=== PATIENT | female | born 1945 | race African-American/Black ===

== ENCOUNTER 2024-10-02 09:54 | Outpatient (AMB) | payer MEDICARE, SELFPAY ==
--- NOTE | 2024-10-02 10:07 | MHC.OFFVIS ---
Vital Signs 10/02/24 10:08 Height 5 ft 4 in Weight 170 lb BMI 29.2 BP 122/64 Blood Pressure Location Lt brachial Position Sitting Pulse 82 Pulse Source Pulse Oximeter Pulse Oximetry (%) 96 Oxygen Delivery Method Room Air Intake Visit Reasons: OA Intake Note: Patient presents today for diffuse joint pain. She was last seen at [facility] by Dr. Mcdonald on 04/04/24. Quilt Maker Required: Yes Quilt Maker Services: Quilt Maker Offered & Declined Quilt Maker Name: WILL glez Accompanied by: DRAWING TRACER Allergies No Known Allergies Allergy (Verified 10/02/24 10:12) HPI HPI OA: Details: R shoulder is worse than left shoulder pain. She has difficulty dressing herself. Pain in shoulders when moving her arms up. She has pain in neck radiating to shoulders Knee pain is controlled. She received left knee cortisone injection with benefit. Review of Systems Const All systems reviewed & are unremarkable except as noted in HPI and below Physical Exam Vital Signs: Last Vital Signs Pulse 82 10/02/24 10:08 BP 122/64 10/02/24 10:08 Pulse Ox 96 10/02/24 10:08 Oxygen Delivery Method Room Air 10/02/24 10:08 BMI result Body Mass Index 29.2 Const Other: General: Comfortable Skin: No lesions seen MSK: Tender bilateral shoulders. Shoulder abduction 160 degrees. Good internal rotation. External rotation is not full due to pain. Tender to palpation cervical spinous process, paraspinal muscles and trapezius. Good cervical ROM. Office Procedures AMB Joint Injection/Aspiration Joint Injection/Aspiration Details: Right shoulder joint Prep: site was prepped using aseptic technique Injected: 40 mg of, Kenalog, with 1 mL of and 1% plain lidocaine Procedure: The patient tolerated the procedure well. Postprocedure protocol was discussed with patient. Coding - Bilateral Large Joint Procedure code (CPT) selection complete AMB Joint Injection/Aspiration Joint Injection/Aspiration Details: Left shoulder joint Prep: site was prepped using aseptic technique Injected: 40 mg of, Kenalog, with 1 mL of and 1% plain lidocaine Procedure: The patient tolerated the procedure well. Postprocedure protocol was discussed with patient. Coding - Bilateral Large Joint Procedure code (CPT) selection complete Office Meds lidocaine (PF) 10 mg/mL (1 %) injection solution Performing Provider: Norman Mcdonald MD Performing Location: [facility] [place] [facility] Administered by: Norman Mcdonald MD on 10/02/24 21:56 Dose Route Admin Location Dispensed Lot Number Expiration Date [facility] Manager Development 10 mg Infiltration 5 mL [id number] HUONS/VGYAAN Kenalog 40 mg/mL suspension for injection Performing Provider: Norman Mcdonald MD Performing Location: [facility] [place] [facility] Administered by: Norman Mcdonald MD on 10/02/24 21:56 Dose Route Admin Location Dispensed Lot Number Expiration Date [facility] Manager Development 40 mg intra-articular 1 mL [id number] [employer] lidocaine (PF) 10 mg/mL (1 %) injection solution Performing Provider: Norman Mcdonald MD Performing Location: [facility] [place] [facility] Administered by: Norman Mcdonald MD on 10/02/24 21:56 Dose Route Admin Location Dispensed Lot Number Expiration Date [facility] Manager Development 10 mg Infiltration 5 mL [id number] [employer]ONS/VGYAAN Kenalog 40 mg/mL suspension for injection Performing Provider: Norman Mcdonald MD Performing Location: [facility] [place] [facility] Administered by: Norman Mcdonald MD on 10/02/24 21:56 Dose Route Admin Location Dispensed Lot Number Expiration Date [facility] Manager Development 40 mg intra-articular 1 mL [id number] [employer] Assessment & Plan Assessment & Plan (1) Osteoarthritis of glenohumeral joints, bilateral: Comment: Pain is uncontrolled. Code(s): M19.011 - Primary osteoarthritis, right shoulder; M19.012 - Primary osteoarthritis, left shoulder Category: Medical Plan: Patient received intra-articular cortisone injections to bilateral shoulders this visit PT ordered for strengthening Return to clinic in 3 months (2) Trapezius strain: Comment: Pain is uncontrolled. We discussed conservative management. Code(s): S46.819A - Strain of other muscles, fascia and tendons at shoulder and upper arm level, unspecified arm, initial encounter Category: Medical Qualifiers: Encounter type: initial encounter Laterality: unspecified laterality Qualified Code(s): S46.819A - Strain of other muscles, fascia and tendons at shoulder and upper arm level, unspecified arm, initial encounter Plan: Patient agreed to physical therapy Return to clinic in 3 months Orders: Orders PT Evaluation and Treatment Today M19.011 - Primary osteoarthritis, right shoulder, M19.012 - Primary osteoarthritis, left shoulder, S46.819A - Strain of other muscles, fascia and tendons at shoulder and upper arm level, unspecified arm, initial encounter AMB Joint Injection/Aspiration Today M19.011 - Primary osteoarthritis, right shoulder, M19.012 - Primary osteoarthritis, left shoulder AMB Joint Injection/Aspiration Today M19.011 - Primary osteoarthritis, right shoulder, M19.012 - Primary osteoarthritis, left shoulder Medications: New lidocaine (PF) 10 mg Infiltration ONCE 1 mL 0RF M19.011 - Primary osteoarthritis, right shoulder, M19.012 - Primary osteoarthritis, left shoulder Kenalog (triamcinolone acetonide) 40 mg intra-articular ONCE 1 mL 0RF NS M19.011 - Primary osteoarthritis, right shoulder, M19.012 - Primary osteoarthritis, left shoulder lidocaine (PF) 10 mg Infiltration ONCE 1 mL 0RF M19.011 - Primary osteoarthritis, right shoulder, M19.012 - Primary osteoarthritis, left shoulder Kenalog (triamcinolone acetonide) 40 mg intra-articular ONCE 1 mL 0RF NS M19.011 - Primary osteoarthritis, right shoulder, M19.012 - Primary osteoarthritis, left shoulder Coding Level of Care Code Est Pt Level 4 (93103) Complex EM visit Add On G2211 Diagnoses Osteoarthritis of glenohumeral joints, bilateral M19.011; M19.012 Strain of trapezius muscle, unspecified laterality, initial encounter S46.996V Encounter type: initial encounter Laterality: unspecified laterality CPT Codes Coding - 40572 - Bilateral Large Joint: 74262 - Bilateral Large Joint ([id number]) Coding - 24309 - Bilateral Large Joint: 79640 - Bilateral Large Joint ([id number])
[2024-10-02 10:08] VITALS: BP 122/64; PULSE 82; O2SAT 96; BMI 29.2
== END 2024-10-02 10:56 | disposition home or self-care (01) ==
PROVIDERS: PCP Internal Medicine Rheumatology; Visit Provider Internal Medicine Rheumatology
DX: M19.011 Primary osteoarthritis, right shoulder (principal); M19.012 Primary osteoarthritis, left shoulder; S46.819A Strain of other muscles, fascia and tendons at shoulder and upper arm level, unspecified arm, initial encounter
CPT/HCPCS: 20610; 99214

== ENCOUNTER → 2024-10-02 09:54 | Outpatient (BNVA) | payer MEDICARE, SELFPAY | PROVIDERS: PCP Internal Medicine Rheumatology; Visit Provider Internal Medicine Rheumatology | DX: M19.011 Primary osteoarthritis, right shoulder (principal); M19.012 Primary osteoarthritis, left shoulder | CPT/HCPCS: 20610; 99212; J2003; J3300 ==

== ENCOUNTER 2025-01-01 10:42 | Outpatient (AMB) | payer MEDICARE, SELFPAY ==
[2025-01-01 10:50] VITALS: BP 144/80; PULSE 75; O2SAT 96; BMI 29.9
--- NOTE | 2025-01-01 10:50 | MHC.OFFVIS ---
Vital Signs 01/01/25 10:50 Height 5 ft 4 in Weight 173 lb 15.115 oz BMI 29.9 BP 144/80 H Blood Pressure Location Rt brachial Position Sitting Pulse 75 Pulse Source Pulse Oximeter Pulse Oximetry (%) 96 Oxygen Delivery Method Room Air Intake Visit Reasons: Follow Up 3mo Intake Note: Patient presents today for diffuse joint pain. Sewage Disposal Worker Name: newton Information Interpreted: non-clinical & clinical Commercial Title Examiner: Commercial Title Examiner Present Accompanied by: electric motor repairman Allergies No Known Allergies Allergy (Verified 01/01/25 10:50) HPI HPI Follow Up 3mo: Details: She is experiencing right buttocks pain. She has been experiencing it for years. Bilateral shoulder pain resolved with cortisone injection. Review of Systems Const All systems reviewed & are unremarkable except as noted in HPI and below Physical Exam Vital Signs: Last Vital Signs Pulse 75 01/01/25 10:50 BP 144/80 H 01/01/25 10:50 Pulse Ox 96 01/01/25 10:50 Oxygen Delivery Method Room Air 01/01/25 10:50 BMI result Body Mass Index 29.9 Const Other: General: Comfortable Skin: No lesions seen MSK: Nontender bilateral shoulders. Normal range of motion of bilateral shoulders. Right SI joint tenderness. Positive ELLYN. Good lumbar flexion. No spinous process tenderness of lumbar spine. Normal hip external rotation. Normal knee flexion and extension. Assessment & Plan Assessment & Plan (1) Osteoarthritis of glenohumeral joints, bilateral: Comment: Bilateral chronic pain resolved with cortisone injection from last visit. We discussed the importance of having a home strengthening program to prevent recurrence of pain. Code(s): M19.011 - Primary osteoarthritis, right shoulder; M19.012 - Primary osteoarthritis, left shoulder Category: Medical Plan: PT ordered for strengthening. Patient prefers to have PT local to her home. Requisition given to patient Return to clinic in 3 months (2) Pain in right buttock: Comment: Chronic. She has localized tenderness to her right SI joint. I am concerned about development of new SI joint pathology. X-ray reviewed from 2021 [facility] records revealed normal SI joints. Code(s): M79.18 - Myalgia, other site Category: Medical Plan: X-ray SI joints ordered PT ordered for manual, myofascial release, TENs unit and exercise strengthening program. Patient prefers to have PT local to her home. Requisition given to patient. She will apply lidocaine patch to affected area daily Apply heat to area daily Return to clinic for 3 months Orders: Orders XR sacroiliac joint min 3V Today M79.18 - Myalgia, other site Coding Level of Care Code Est Pt Level 3 (52701) Complex EM visit Add On G2211 Diagnoses Osteoarthritis of glenohumeral joints, bilateral M19.011; M19.012 Pain in right buttock M79.18
--- OUTSIDE RECORDS SUMMARY | 2025-01-01 12:24 | XMS_ITS ---
Author Organization [facility] Address [address] [place] [address] Care Team Providers Care Pleat Taper Name Role Phone Alexandrea Ivan PA-C Primary Care Provider Active Problems Problem Noted Date Diagnosed Date Osteopenia 07/28/2022 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, estrogen receptor positive 08/16/2017 Current Oncology Plans No current plan information found. Past Plans Radiation Treatments * No radiation treatments are documented for this patient in [facility]. Treatments may have been administered in another system.
--- OUTSIDE RECORDS SUMMARY | 2025-01-01 12:24 | XMS_ITS | Clinical Summary ---
Author Organization [facility] Address [address] [place] [address] Care Team Providers Care Rest Room Maid Name Role Phone Alexandrea Ivan PA-C Primary Care Provider Allergies No known active allergies Medications Medication Sig Dispensed Refills Start Date End Date Status lisinopril (PRINIVIL,ZESTRIL) tablet 2.5 mg Take 1 tablet (2.5 mg total) by mouth daily. 0 Active cholecalciferol (VITAMIN D3) 1000 UNITS tablet Take 1 tablet (1,000 Units total) by mouth daily. 0 Active FLUoxetine (PROZAC) 20 MG capsule Take 1 capsule (20 mg total) by mouth daily. 0 Active vitamin B-12 (CYANOCOBALAMIN) 500 MCG tablet Take 1 tablet (500 mcg total) by mouth daily. 0 Active levothyroxine (SYNTHROID, LEVOXYL) tablet 100 mcg Take 1 tablet (100 mcg total) by mouth every morning on an empty stomach. 0 Active Insulin Detemir (LEVEMIR FLEXPEN SC) Inject under the skin. 0 Active Multiple Vitamins-Minerals (CENTRUM MULTIGUMMIES PO) Take by mouth. 0 Acti ve aspirin EC 81 MG tablet Take 1 tablet (81 mg total) by mouth daily. 0 Active omeprazole (PriLOSEC) 20 MG capsule TAKE 1 CAPSULE BY MOUTH EVERY MORNING BEFORE BREAKFAST. DO NOT CRUSH OR CHEW 90 capsule 3 05/04/2019 Active Calcium Carbonate-Vitamin D 600-400 MG-UNIT per tablet TAKE 1 TABLET BY MOUTH TWICE DAILY WITH FOOD 180 tablet 0 05/09/2019 Active anastrozole (ARIMIDEX) 1 MG tablet TAKE 1 TABLET(1 MG) BY MOUTH DAILY 90 tablet 3 12/15/2021 Active Additional Information Patient not taking.Reason: Other (MD discontinued after 12 years), Reported on 04/11/2023 QUEtiapine (SEROquel) 200 MG tablet Take 1 tablet (200 mg total) by mouth every night at bedtime. 0 02/02/2023 Active Semaglutide,0.25 or 0.5MG/DOS, (Ozempic, 0.25 or 0.5 MG/DOSE,) 2 MG/1.5ML SOPN INJECT 0.5MG INTO THE SKIN EVERY WEEK 0 12/10/2022 Active zolpidem (AMBIEN) 10 MG tablet Take 1 tablet (10 mg total) by mouth every night at bedtime. 0 01/15/2010 Active Spiriva Respimat 1.25 MCG/ACT AERS Take 2 puffs by mouth daily. 0 03/22/2023 Active rosuvastatin (CRESTOR) tablet 5 mg Take 1 tablet (5 mg total) by mouth every night at bedtime. 0 03/29/2023 Active gabapentin (NEURONTIN) 300 MG capsule Take 1 capsule (300 mg total) by mouth every night at bedtime. 0 03/29/2023 Active folic acid (FOLVITE) tablet 1 mg Take 1 tablet (1,000 mcg total) by mouth daily. 0 03/29/2023 Active docusate sodium (COLACE) 100 MG capsule Take 1 capsule (100 mg total) by mouth 2 (two) times a day. 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, estrogen receptor positive 08/16/2017 Family History Medical History Relation Name Comments Cancer Father liver Stroke Mother Relation Name Status Comments Father Mother Social History Tobacco Use Types Packs/Day Years Used Date Smoking Tobacco: Former Smokeless Tobacco: Never Alcohol Use Standard Drinks/Week Comments No 0 (1 standard drink = 0.6 oz pur e alcohol) Sex and Gender Information Value Date Recorded Sex Assigned at Female 10/04/2022 9:12 AM EST Gender Identity Not on file Sexual Orientation Not on file Job Start Date Occupation Industry Not on file Not on file Not on file Last Filed Vital Signs Vital Sign Reading Time Taken Comments Blood Pressure 143/64 04/11/2024 2:03 PM EDT Pulse 87 04/11/2024 2:03 PM EDT Temperature 36.9 ??C (98.4 ??F) 04/11/2024 2:03 PM ED T Respiratory Rate 18 04/11/2024 2:03 PM EDT Oxygen Saturation 99% 04/11/2024 2:03 PM EDT Inhaled Oxygen Concentration - - Weight 75.3 kg (166 lb) 09/26/2023 1:06 PM EST Height 157.5 cm (5' 2 ) 09/26/2023 1:06 PM EST Body Mass Index 30.36 09/26/2023 1:06 PM EST Plan of Treatment Health Maintenance Due Date Last Done Comments Depression Screening 1958 BMI Counseling 1964 Preventative Health Evaluation 1964 Shingrix-Zoster Vaccine (1 of 2) 1965 Fall Risk Assessment 11/11/2011 Osteoporosis Screening (DEXA Scan) 11/11/2011 RSV Adult > 60+ Yrs or (1 - 1-dose 75+ series) 2021 COVID-19 Vaccine ( season) 2024 02/10/2022, 08/25/2021, 01/06/2021 Influenza Vaccine (#1) 2024 2, 04/25/2021, 05/29/2020, Additional history exists DTap / Tdap / Td (2 - Td or Tdap) 12/22/2024 12/22/2014 Hepatitis C Screening Completed 07/11/2018 Pneumococcal Vaccine Completed 08/20/2022, 08/31/20 18 Hepatitis B Vaccines Aged Out No long er eligible based on patient's age to complete this topic RSV Ped < 20 months Aged Out No longe r eligible based on patient's age to complete this topic Care Teams Rest Room Maid Relationship Specialty Start Date End Date Alexandrea Ivan PA-C [address] [place] [address] PCP - General Physician Janitorial Cleaner 08/16/17
--- OUTSIDE RECORDS SUMMARY | 2025-01-01 12:24 | XMS_ITS | Clinical Summary ---
Author Organization [facility] Address [address] [place] [address] Care Team Providers Care Purchase Price Analyst Name Role Phone Alexandrea Ivan PA-C Primary Care Provider + [phone] Source Comments PLEASE NOTE, if this patient is a minor, it may be UNLAWFUL to discuss sensitive information that is contained in these records (such as FAMILY PLANNING, MENTAL HEALTH or SUBSTANCE ABUSE) with the minor patient's parent or other person without the patient's specific authorization.[facility] Allergies No known active allergies Medications FREESTYLE LANCETS 28 gauge USE FOUR TIMES DAILY 100 Each 11 021 Active naproxen (NAPROSYN) 500 mg tabletIndications :Spondylosis of lumbar region without myelopathy or radiculopathy TAKE 1 TABLET BY MOUTH TWICE DAILY WITH A MEAL 180 Tablet 1 021 Active anastrozole (ARIMIDEX) 1 mg tabletIndications :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, estrogen receptor positive, unspecified laterality (HCC-CMS) Take 1 mg by mouth 021 Active miscellaneous medical supply miscIndications:S prain of left ankle, unspecified ligament, subsequent encounter by miscellaneous route once daily Left ankle support brace, disp1,lifetime need, dx left ankle sprain/weakness 1 Each 021 Active blood-glucose meter (FREESTYLE LITE METER) monitoring kitIndications:In sulin dependent type 2 diabetes mellitus, uncontrolled once daily Use qd, dx E11.9 1 Each 021 Active nut.tx.gluc.intol ,lac-free,soy (GLUCERNA ADVANCE) liqdIndications:P oor appetite Take 1 Can by mouth 3 (three) times daily Poor appetite due to FTT adult 90 mL 022 Active miscellaneous medical supply miscIndications:A nxiety and depression,Poor appetite by miscellaneous route 3 (three) times daily Glucerna, disp 90/month, dx poor appetite, weight loss, FTT 90 Each 022 Active BD NEGRITA 2ND GEN PEN NEEDLE 32 gauge x 5/32 ndle USE WITH VICTOZA 100 Each 023 Active MISCELLANEOUS MEDICAL SUPPLY MISCIndications:M ixed incontinence,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 Kotex liners, disp 180/month, dx mixed incontinence, pelvic relaxation syndrome 180 Each 023 Active blood sugar diagnostic (FREESTYLE LITE STRIPS) strips USE TO CHECK BLOOD SUGAR FOUR TIMES DAILY 200 Each 023 Active blood sugar diagnostic strips 1 Each 4 (four) times daily ONE TOUCH VERIO, USE TO CHECK BLOOD SUGAR FOUR TIMES DAILY, Dx.E11.9 Disp-200 Each, R-11 200 Each 023 Active blood-glucose meter monitoring kit 4 (four) times daily ONE TOUCH VERIO, USE TO CHECK BLOOD SUGAR FOUR TIMES DAILY. Dx.E11.9 1 Each 023 Active albuterol HFA 90 mcg/actuation inhalerIndication s:Mild persistent asthma without complication ([facility]) Inhale 2 Puffs into the lungs every 4 to 6 (four to six) hours as needed 023 Active budesonide-formot [place] (SYMBICORT) 160-4.5 mcg/actuation inhalerIndication s:Mild persistent asthma without complication ([facility]) 024 Active SPIRIVA RESPIMAT 1.25 mcg/actuation mistIndications:M ild persistent asthma without complication ([facility]) INHALE 2 PUFFS BY MOUTH EVERY DAY Active MISCELLANEOUS MEDICAL SUPPLY MISCIndications:M ixed incontinence by miscellaneous route once daily Diabetic shoe inserts, disp 3 pairs, dx diabetes mellitus with insulin dependence and poor circulation, lifetime 3 Each Active MISCELLANEOUS MEDICAL SUPPLY MISCIndications:M ixed incontinence by miscellaneous route once daily Diabetic shoes, disp 1 pair, dx diabetes mellitus with insulin dependence and poor circulation, lifetime 1 Each 024 Active folic acid (FOLVITE) 1 mg tabletIndications :Type 2 diabetes mellitus without complication, with long-term current use of insulin ([facility]),Poor short term memory TAKE 1 TABLET BY MOUTH EVERY DAY 90 Tablet 3 024 Active cholecalciferol (VITAMIN D-3) 50 mcg (2,000 unit) capsuleIndication s:B12 nutritional deficiency TAKE 1 CAPSULE BY MOUTH DAILY 90 Capsule 4 024 Active lisinopriL 10 mg tabletIndications :Hypertension, essential, benign TAKE 1 TABLET BY MOUTH EVERY NIGHT AT BEDTIME 90 Tablet 3 024 Active SYNJARDY 12.5-500 mg tab TAKE 1 TABLET BY MOUTH EVERY DAY 90 Tablet 3 [address] Active aspirin [address] tablet TAKE 1 TABLET BY MOUTH DAILY 90 Tablet 3 024 Active ammonium lactate (LAC-HYDRIN) 12 % lotionIndications :Primary osteoarthritis involving multiple joints APPLY TOPICALLY TO THE TO THE AFFECTED AREA NEEDED DRY SKIN 400 g 024 Active gabapentin (NEURONTIN) 300 mg capsuleIndication s:Diabetic mononeuropathy associated with type 2 diabetes mellitus ([facility]) TAKE 1 CAPSULE BY MOUTH EVERY NIGHT AT BEDTIME 90 Capsule 5 024 Active acetaminophen (TYLENOL) 500 mg tabletIndications :Mixed headache TAKE 1 TABLET BY MOUTH THREE TIMES DAILY 90 Tablet 5 024 Active lancets (FREESTYLE LANCETS) 28 gauge USE TO CHECK BLOOD SUGAR 4 TIMES DAILY 200 Each 11 024 Active MISCELLANEOUS MEDICAL SUPPLY MISCIndications:P rimary osteoarthritis involving multiple joints by miscellaneous route 3 (three) times daily salonpamariya evans, disp 90/month, dx left shoulder pain 90 Each 11 024 Active magnesium oxide (MAG-OX) 400 mg (241.3 mg magnesium) tabletIndications :Routine general medical examination at a health care facility Take 1 Tablet by mouth once daily 90 Tablet 3 024 Active levothyroxine 100 mcg tabletIndications :Hypothyroidism due to acquired atrophy of thyroid TAKE 1 TABLET BY MOUTH EVERY DAY 90 Tablet 4 024 Active insulin glargine 100 unit/mL (3 mL) pen Inject 50 Units into the skin 2 (two) times daily 90 mL 4 025 Active calcium carbonate-vitamin D3 600 mg-10 mcg (400 unit) tabletIndications :Spondylosis of lumbar region without myelopathy or radiculopathy TAKE 1 TABLET BY MOUTH TWICE DAILY WITH A MEAL 180 Tablet 2 025 Active diclofenac sodium (VOLTAREN) 1 % gelIndications:Sp ondylosis of lumbar region without myelopathy or radiculopathy APPLY TOPICALLY TO THE AFFECTED AREA TWICE DAILY 300 g 5 025 Active QUEtiapine (SEROQUEL) 200 mg tablet TAKE 1 TABLET BY MOUTH EVERY NIGHT AT BEDTIME 90 Tablet 1 025 Active docusate sodium (COLACE) 100 mg capsule Take 2 Capsules by mouth nightly at bedtime 180 Capsule 3 025 Active cyanocobalamin (VITAMIN B-12) 1,000 mcg tablet Take 1 Tablet by mouth once daily 90 Tablet 1 025 Active zolpidem (AMBIEN) 10 mg tablet TAKE 1 TABLET BY MOUTH EVERY DAY AT BEDTIME 30 Tablet 3 025 Active rosuvastatin (CRESTOR) 5 mg tablet TAKE 1 TABLET BY MOUTH EVERY NIGHT AT BEDTIME 90 Tablet 2 025 Active semaglutide (OZEMPIC) 0.25 mg or 0.5 mg (2 mg/3 mL) pen injector INJECT 0.5 MG UNDER THE SKIN EVERY WEEK 9 mL 5 025 Active FLUoxetine (PROZAC) 20 mg capsuleIndication s:Major depressive disorder, recurrent episode, mild with anxious distress ([facility] V24) TAKE 1 CAPSULE BY MOUTH EVERY MORNING 90 Capsule 1 025 Active semaglutide (OZEMPIC) 0.25 mg or 0.5 mg (2 mg/3 mL) pen injector INJECT 0.5MG UNDER THE SKIN EVERY WEEK 3 mL 3 024 2024 Discontinued rosuvastatin (CRESTOR) 5 mg tablet TAKE 1 TABLET BY MOUTH EVERY NIGHT AT BEDTIME 90 Tablet 2 024 2024 Discontinued FLUoxetine (PROZAC) 20 mg capsuleIndication s:Major depressive disorder, recurrent episode, mild with anxious distress ([facility] V24) TAKE 1 CAPSULE BY MOUTH EVERY MORNING 90 Capsule 1 024 2024 Discontinued zolpidem (AMBIEN) 10 mg tablet TAKE 1 TABLET BY MOUTH EVERY NIGHT AT BEDTIME 30 Tablet 2 025 2024 Discontinued Active Problems Problem Noted Date Diagnosed Date Mixed incontinence 08/24/2024 Mild dementia ([facility]) 02/22/2024 Major depressive disorder, r ecurrent episode, mild with anxious distress ([facility] V24) 03/14/20[address] gland enlargement on CT 11/201911/23/19 Overview (11/23/2019): CT Neck W - 11/23/19 - 0855 HISTORY: Breast carcinoma, right parotid gland mass. COMMENTS: Dedicated contrast-enhanced CT Neck Soft Tissue examination (sambaash, 272.07 DLP (mGy-cm), CT utilizing dose reduction technique with automated exposure control based on patient size or use of iterative reconstruction technique) utilizing 90 mL Isovue-370 intravenous contrast material. Please note: Precontrast CT imaging not performed at this time. No prior studies available for direct comparison. Bilateral lens implants. Grossly symmetric enhanced nasopharynx, oropharynx, hypopharynx, larynx. Nonspecific bilateral tonsillar parenchymal subcentimeter rounded calcifications most likely sequela of previous infection. Thyroid morphology within normal limits. Atherosclerotic calcification of the aortic arch and great vessels. Aberrant right subclavian artery developmental variant. Atherosclerotic calcification of the left carotid bifurcation. Neck arterial vascular tortuosity. Grossly symmetric submandibular glands. Thyroid morphology within normal limits. Asymmetric diffuse right parotid gland parenchymal increased attenuation/enhancement and mild asymmetric parotid tail enlargement without discrete enhancing mass, calcification, ductal dilatation. No neck lymphadenopathy by CT size criteria. Maxilla edentulous and mandible partial edentulous. Multilevel cervical spine degenerative disease with stenosis. IMPRESSION: Asymmetric right parotid gland by contrast-enhanced CT analysis; clinical correlation requested regarding infectious/inflammatory process (parotiditis) and follow-up recommended. [id number] CT Teler[address] [id number] G9557 A Expedited message has been communicated to the office of TAMMIE GARZA via the [employer] System on 11/23/2019 9:34 AM, Message ID [id number]. Dictating Physician: JEROME ROMERO DO Electronically Signed by: JEROME ROMERO DO Dic Date/Time: 11/23/19922 Sign date/Time: 11/23/19934 Bilateral hearing loss 09/27/2019 Right foot bunion 03/21/2018 Spondylosis of lumbar region without myelopathy or radiculopathy 01/13/2018 Primary insomnia 04/27/2017 Diabetic neuropathy ([facility]) 02/18/2017 Anxiety and depression, insomnia Psych: Dr. Rudy lópez 05/17/2016 Overview (12/01/2021): Zolpidem 10, fluoxetine 20 qd, quetiapine 200qhs Bilateral bunions 11/17/2015 Corneal scar: [facility] 04/07/2015 History of echocardiogram 03/2017: essentialy no rmal 09/09/2014 Overview (04/27/2017): Result type: Echocardiogram - Complete Result date: March 22, 2017 9:36 Result status: Modified Result title: Echo Complete Performed by: Rahul Brewster MD on March 22, 2017 9:36 Verified by: Rahul Brewster MD on March 22, 2017 9:36 Encounter info: [id number], [facility], One Time OP, 03/22/2017 - 03/22/2017 Contributor system: [employer] * Final Report * Echo Complete-Doppler, Colorflow, M-Mode Transthoracic Echocardiography Report (TTE) Patient Demographics Patient Name KHADIJAH SERVIN Date of Study 03/22/2017 Corporate Gender Female Facility Race Ethnicity Date of 1945 Height: 64 inches Age 71 year(s) Weight: 171 pounds Accession Number [id number] BSA: 1.83 m2 Room Number BMI: 29.35 kg/m2 Referring Physician Miryam CHO Interpreting Kinsey Brewster Physician Camera Assembler Alden Fitzgerald RCS Indications Chest pain. Clinical History No cardiac risk factors. Study Data Type of Study TTE procedure:Echo Complete-Doppler, Colorflow, M-Mode. Study Date03/22/2017 Start Time: 09:36 AM Study Location: 3300 Adult Echo Study Status: Echo lab Patient Status: Routine Technical Quality: Adequate Blood Pressure:132/70 mmHg EKG: Normal sinus rhythm HR: 81 bpm 2D Measurements LV Diastolic Dimension: 4.2 cm LV Systolic Dimension: 2.9 cm LV Septum Diastolic: 1 cm LV PW Diastolic: 1.1 cm AO Root Dimension: 3.9 cm LA Dimension: 3.6 cm LA ESV (BP):52 ml LVOT Stroke Volume: 61.17 ml LA ESV Index: 28 ml/m2 Stroke Volume Index33.43 ml/m2 LVOT: 2.2 cm Cardiac Index:2.7 l/min/m2 Doppler Measurements AV Peak Velocity: 74 cm/s MV Peak E-Wave: 43.9 cm/s AV Peak Gradient: 2.19 mmHg MV Peak A-Wave: 94.3 cm/s MV E/A Ratio: 0.47 LVOT VTI16.1 cm MV Deceleration Time: 303 msec TR Velocity:357 cm/s TR Gradient:50.98 mmHg PV Peak Velocity: 73.3 cm/s E' Septal Velocity: 4.83 cm/s PV Peak Gradient: 2.15 mmHg E' Lateral Velocity: 7.35 cm/s E/Med E':[id number] E/Lat E':5.431207 Cardiac Anatomy Left Ventricle/Interventricular Septum The left ventricular wall thickness is mildly increased. Normal left ventricular size and function with EF 55-60%. No focal wall motion abnormalities. Grade I, mild diastolic dysfunction with impaired LV relaxation, which may be normal for the patient's age. Left Atrium/Interatrial Septum The left atrium is normal in size. Aortic Valve There is trace aortic regurgitation. No aortic stenosis. The aortic valve is poorly visualized. Mitral Valve Normal mitral valve structure. Trace regurgitation. No stenosis. Aorta The ascending aorta is normal in size. The aortic root is mildly dilated at 4.1 cm. Right Ventricle Normal right ventricular size and function. Right Atrium The right atrium is normal in size. Pulmonic Valve The pulmonic valve was not well visualized. Trace pulmonic regurgitation. No pulmonic stenosis. Tricuspid Valve The tricuspid valve is normal in structure and function. There is trace regurgitation. Pumonary Artery An accurate pulmonary artery pressure could not be obtained. Venous Structures Normal IVC size and respiratory collapse. Pericardium/Extracardiac There is no pericardial effusion. Summary Normal left ventricular size and function with EF 55-60%. No focal wall motion abnormalities. The left ventricular wall thickness is mildly increased. Normal right ventricular size and function. No significant valvular disease. The aortic root is mildly dilated at 4.1 cm. Comparison No prior study available for comparison. Signature Echo Complete This document has an image Result type: Echocardiogram - Complete Result date: 12 October 2013 13:59 Result status: Modified Result title: Echo Complete Performed by: Cm Lyons MD on 12 October 2013 13:59 Verified by: Cm Lyons MD on 12 October 2013 13:59 Encounter info: [id number], [facility], One Time OP, 10/12/2013 - 10/12/2013 Contributor system: [employer] * Final Report * Echo Complete-Doppler, Colorflow, M-Mode Transthoracic Echocardiography Report (TTE) Patient Demographics Patient Name KHADIJAH SERVIN Date of Study 10/12/2013 Corporate Gender Female Facility Race Ethnicity Date of 1945 Height: 64.17 inches Age 67 year(s) Weight: 167.55 pounds Accession Number [id number] BSA: 1.82 m2 Room Number BMI: 28.6 kg/m2 Referring Physician Miryam CHO Interpreting Physician Cm Lyons MD Camera Assembler Alden Fitzgerald RCS Indications Hypertension. Clinical History No cardiac risk factors. Study Data Type of Study TTE procedure:Echo Complete-Doppler, Colorflow, M-Mode. Study Date10/12/2013 Start Time: 01:59 PM Study Location: 3300 Adult Echo Study Status: Echo lab Patient Status: Routine Technical Quality: Adequate Blood Pressure:139/77 mmHg EKG: Normal sinus rhythm 2D Measurements LV Diastolic Dimension: 4.4 cm LV Systolic Dimension: 2.9 cm LV Septum Diastolic: 0.9 cm LV PW Diastolic: 0.8 cm AO Root Dimension: 4 cm LA Dimension: 3.9 cm LA ESV (BP):59 ml LVOT Stroke Volume: 47 ml LA ESV Index: 32 ml/m2 LVOT: 1.9 cm Doppler Measurements AV Peak Velocity: 149 cm/s MV Peak E-Wave: 39.8 cm/s AV Peak Gradient: 8.88 mmHg MV Peak A-Wave: 74 cm/s MV E/A Ratio: 0.54 LVOT VTI16.6 ml TR Velocity:208 cm/s MV Deceleration Time: 201 msec TR Gradient:17.31 mmHg E' Septal Velocity: 5.92 cm/s PV Peak Velocity: 90.9 cm/s E' Lateral Velocity: 7.02 cm/s PV Peak Gradient: 3.31 mmHg E/Med E':[id number] E/Lat E':5.118035 Cardiac Anatomy Left Ventricle/Interventricular Septum The left ventricular size is normal. The left ventricular wall thickness is upper normal. The LV systolic function is normal . The left ventricular ejection fraction is 60-65 %. No obvious wall motion abnormalities seen on limited views. Grade I-II, mild to moderate diastolic dysfunction with impaired LV relaxation and increased LA pressure. Left Atrium/Interatrial Septum The left atrium is mildly dilated. Aortic Valve The aortic valve leaflet opening is normal . There is no aortic stenosis. There is no significant aortic regurgitation. Mitral Valve The mitral valve is grossly normal. There is trace mitral regurgitation. Aorta There is mild dilation of the aortic root (4.0 cm). Right Ventricle The right ventricular size and function appears grossly normal. Right Atrium The right atrium is normal in size. Pulmonic Valve There is mild pulmonic regurgitation. Tricuspid Valve There is mild tricuspid valve regurgitation. Summary The left ventricular size is normal. The left ventricular wall thickness is upper normal. The LV systolic function is normal . The left ventricular ejection fraction is 60-65 %. No obvious wall motion abnormalities seen on limited views. Grade I-II, mild to moderate diastolic dysfunction with impaired LV relaxation and increased LA pressure. The left atrium is mildly dilated. The aortic valve leaflet opening is normal . There is no aortic stenosis. There is no significant aortic regurgitation. There is mild dilation of the aortic root (4.0 cm). Comparison No prior study available for comparison. Signature Echo Complete This document has an image Hypertension, essential, benign 09/26/2013 Type 2 diabetes mellitus wit hout complication, with long-term current use of insulin ([facility]) 03/23/2013 Overview (05/17/2016): Opthal: Dr. Kennedy Asthma, mild persistent, Pulm: Dr. Fitzgerald 03/23 Hypothyroid 03/23/2013 Osteoarthritis 03/23/2013 B12 nutritional deficiency 03/23/2013 Dyspepsia 03/23/2013 History of breast cancer 08/05/2012 Resolved Problems Problem Noted Date Diagnosed Date Resolved Date Breast cancer 08/16/2017 04/09/2024 Encounters Date Type Department Care Team Description 12/20/2024 1:00 PM EDT / Visits [address] [phone] Trujillo, Ashish, GRAPHIC ART SALES REPRESENTATIVE Major depressive disorder, recurrent episode, mild with anxious distress ([facility] V24) (Primary Dx) 12/06/2024 11:40 AM EDT Telemedicine Visit [address] [phone] Asael Chu, RD Type 2 diabetes mellitus without complication, with long-term current use of insulin (HCC-CMS) (Primary Dx) 11/22/2024 1:00 PM EDT BH/MH Visits [address] [phone] Ronnie Ashish, GRAPHIC ART SALES REPRESENTATIVE Major depressive disorder, recurrent episode, mild with anxious distress (HCC-CMS) (Primary Dx) 11/01/2024 10:30 AM EST BH/MH Visits [address] [phone] Ronnie Ashish, GRAPHIC ART SALES REPRESENTATIVE Major depressive disorder, recurrent episode, mild with anxious distress (HCC-CMS) (Primary Dx) 10/31/2024 11:20 AM EST Telemedicine Visit [address] [phone] Asael Chu, RD Controlled type 2 diabetes mellitus without complication, with long-term current use of insulin (HCC-CMS) (Primary Dx) 10/04/2024 11:00 AM EST BH/MH Visits [address] [phone] Trujillo Ashish, GRAPHIC ART SALES REPRESENTATIVE Major depressive disorder, recurrent episode, mild with anxious distress (HCC-CMS) (Primary Dx) from Last 3 Months Immunizations Immunization Administration Dates Next Due Flu, Adjuvant, 65y+ (Fluad) 06/09/2022 Flu, High Dose, 65y+, Fluzon e High Dose 04/25/2021,05/29/2020 INFLUENZA, SEASONAL, INJECTABLE 05/17/20 16,07/03/2015,07/08/2014,2010 Influenza (FLUAD), Trivalent , Adjuvanted 08/31/2018 MARY COVID-19 VACCINE 01/06/2021 PFIZER COVID VACCINE, PURPLE CAP, 12+ 02/10/2022 ,08/25/2021 PNEUMOCOCCAL CONJUGATE PCV 13 08/31/2018 PNEUMOCOCCAL CONJUGATE PCV 2 0 (Prevnar) 08/20/2022 TDAP 12/22/2014 Family History Medical History Relation Name Comments Schizophrenia Daughter Depression Maternal Aunt Relation Name Status Comments Daughter Maternal Aunt Social History Tobacco Use Types Packs/Day Years Used Date Smoking Tobacco: Former Cigarettes Smokeless Tobacco: Never Tobacco Cessation:Counseling Given: Not Answered Alcohol Use Standard Drinks/Week Comments No 0 (1 standard drink = 0.6 oz pur e alcohol) Social Connections Answer Date Recorded Connectedness 1 07/17/2024 Financial Resource Strain Answer Date R ecorded Financial Resource Strain 2 2023 Stress Answer Date Recorded Stress 2 07/17/2024 Physical Activity Answer Date Recorded Physical Activity 2 07/17/2024 Food Insecurity Answer Date Recorded Food 2 07/17/2024 Transportation Needs Answer Date Record ed Transportation 1 07/17/2024 Housing Stability Answer Date Recorded Housing 1 07/17/2024 Safety and Environment Answer Date Sp rded Safety 1 07/17/2024 Utilities Answer Date Recorded Utilities 1 07/17/2024 Employment Answer Date Recorded Stress 1 07/17/2024 Comments No Sex and Gender Information Value Date Recorded Sex Assigned at Female 07/13/2017 7:44 AM PST Legal Sex Female 12:49 PM PDT Gender Identity Female 07/13/2017 7:44 AM PST Sexual Orientation Straight 07/13/2017 7: 44 AM PST Last Filed Vital Signs Vital Sign Reading Time Taken Comments Blood Pressure 134/62 08/24/2024 1:19 PM EST Pulse 102 08/24/2024 1:19 PM EST Temperature 36.7 ??C (98 ??F) 08/24/2024 1:19 PM EST Respiratory Rate 16 08/24/2024 1:19 PM EST Oxygen Saturation 97% 08/24/2024 1:19 PM EST Inhaled Oxygen Concentration - - Weight 75.3 kg (166 lb) 08/24/2024 1:19 PM EST Height 160 cm (5' 3 ) 08/24/2024 1:19 PM EST Body Mass Index 29.41 08/24/2024 1:19 PM EST Plan of Treatment Upcoming Encounters Date Type Department Care Team ([facility] st Contact Info) Description 01/10/2025 11:20 AM EDT Telemedicine Visit [facility] [address] [place] [phone] Asael Chu, RD [address] [place] [address] 01/22/2025 10:40 AM EDT Office Visit [facility] [address] [place] [phone] Alexandrea Ivan PA-C [address] [place] [phone] 01/31/2025 11:15 AM EDT / Visits [facility] [address] [place] [phone] Ashish Trujillo, GRAPHIC [employer] SALES REPRESENTATIVE [address] [place], [place] [phone] Health Maintenance Due Date Last Done Comments HPV Screening 1945 CT Colonography 11/11/1991 Fecal DNA 11/11/1991 Flexible Sigmoidoscopy 11/11/1991 Falls Prevention 11/11/2011 FIT/gFOBT 09/09/2015 09/09/2014 (Declined) Pap Smear 07/08/2017 07/08/2014 Dental Examination 08/27/2022 08/25/2021 (M anaged by Outside Provider) Depression Monitoring 11/18/2022 08/20/2022 , 03/04/2022, 12/01/2021, Additional history exists [id number] ( season) 2024 06/28/2024, 06/09/2022, 02/10/2022, Additional history exists Diabetes HbA1c 02/22/2025 08/24/2024, 06/0 03/2023, 02/09/2023, Additional history exists Breast Cancer Screening (Mammogram) 03/11/2025 09/11/2024, 09/11/2024, 08/13/2024, Additional history exists Lipid Screening 08/24/2025 08/24/2024, 06/0 03/2023, 02/09/2023, Additional history exists Medicare Annual Wellness Visit 08/24/2025 1 10/25/2023, 05/27/2023, 02/10/2022, Additional history exists TSH Monitoring 08/24/2025 08/24/2024, 03/2023, 08/20/2022, Additional history exists Tobacco Screening 08/24/2025 08/24/2024 Urine Albumin Creatinine Rat io Screening 08/24/2025 08/24/2024, 08/20/2022, 12/01/2021, Additional history exists Diabetes Foot Exam 08/26/2025 08/26/2024, 0 02/22/2024, 02/09/2023, Additional history exists Serum Creatinine 10/03/2025 10/03/2024, , 02/09/2023, Additional history exists Colonoscopy 10/22/2032 10/22/2022, 10/06, 10/22/2022, Additional history exists Colorectal Cancer Screening 10/22/2032 Imm-DTaP/Tdap/Td Discontinued 12/22/2014 Hepatitis C Screening Completed 07/11/2018 Alcohol and Drug Screen Discontinued 08/20/20, 12/01/2021, 06/26/2021, Additional history exists Imm-Pneumococcal 65+ Discontinued 07/12/2023, 08/20/2022, 08/31/2018 Imm-Influenza Discontinued 06/28/2024, 03/2023, 06/09/2022, Additional history exists Retinopathy Screening Discontinued 07/16/2024 , 07/13/2023, 07/12/2022, Additional history exists Bone Density Screening Completed , 08/09/2022, 08/09/2022, Additional history exists Cervical Ablation/Cold-Knife Conization Discontinued Cervical Cancer Screening Discontinued Cervical Cryotherapy Discontinued Colposcopy Discontinued Endometrial Biopsy Discontinued Excision/Leep Discontinued HPV Genotyping Discontinued Imm-Zoster, Recombinant Discontinued Pap + HPV Discontinued Vaginal Pap Discontinued Vulvoscopy Discontinued Goals Goal Patient Goal Type Associated Problems Recent Progress Patient-Stated? Author Blood Pressure < 140/90 Blood Pressure Hypertension, essential, benign 134/62( 024 1:19 PM EST) No Alejandro Hong, PharmD Procedures Procedure Name Priority Date/Time Associated Diagnosis Comments REFERRAL SCANNED DOCUMENT 10/03/2024 3:00 AM EST HISTORIC MAMMOGRAM 09/11/2024 3: 00 AM EST TSH W/RFLX FREE T4 Routine 08/24/2024 1: 53 PM EST Routine general medical examination at a [facility] facility Type 2 diabetes mellitus without complication, with long-term current use of insulin ([facility]) Hypothyroidism due to acquired atrophy of thyroid B12 nutritional deficiency Mild dementia, unspecified dementia type, unspecified whether behavioral, psychotic, or mood disturbance or anxiety ([facility]) Hypertension, essential, benign Malaise and fatigue Short-term memory loss COMPREHENSIVE METABOLIC PANEL Routine 08/24/2024 1:53 PM EST Routine general medical examination at a [facility] facility Type 2 diabetes mellitus without complication, with long-term current use of insulin ([facility]) Hypothyroidism due to acquired atrophy of thyroid B12 nutritional deficiency Mild dementia, unspecified dementia type, unspecified whether behavioral, psychotic, or mood disturbance or anxiety ([facility]) Hypertension, essential, benign Malaise and fatigue Short-term memory loss LIPID PANEL Routine 08/24/2024 1:53 PM EST Routine general medical examination at a [facility] facility Type 2 diabetes mellitus without complication, with long-term current use of insulin ([facility]) Hypothyroidism due to acquired atrophy of thyroid B12 nutritional deficiency Mild dementia, unspecified dementia type, unspecified whether behavioral, psychotic, or mood disturbance or anxiety ([facility]) Hypertension, essential, benign Malaise and fatigue Short-term memory loss MICROALBUMIN/CREATINI NE RATIO, URINE, RANDOM Routine 08/24/2024 1:53 PM EST Routine general medical examination at a [facility] facility Type 2 diabetes mellitus without complication, with long-term current use of insulin ([facility]) Hypothyroidism due to acquired atrophy of thyroid B12 nutritional deficiency Mild dementia, unspecified dementia type, unspecified whether behavioral, psychotic, or mood disturbance or anxiety ([facility]) Hypertension, essential, benign Malaise and fatigue Short-term memory loss HEMOGLOBIN GLYCOSYLATED A1C Routine 08/24/2024 1:53 PM EST Routine general medical examination at a [facility] facility Type 2 diabetes mellitus without complication, with long-term current use of insulin ([facility]) Hypothyroidism due to acquired atrophy of thyroid B12 nutritional deficiency Mild dementia, unspecified dementia type, unspecified whether behavioral, psychotic, or mood disturbance or anxiety ([facility]) Hypertension, essential, benign Malaise and fatigue Short-term memory loss EYE EXAM 07/16/2024 3:00 AM EST HISTORIC COLONOSCOPY 10/22/2022 3:00 AM EST HISTORIC DEXA SCAN 08/09/2022 3: 00 AM EST HEPATITIS C ANTIBODY Routine 07/11/2018 2:07 PM EST Insulin dependent type 2 diabetes mellitus, uncontrolled ([facility]) from Last 3 Months or Most Recently Relevant to Health Maintenance Results * REFERRAL SCANNED DOCUMENT (10/03/2024 3:00 AM EST) 10/03/2024 3:00 AM EST us Alexandrea Ivan PA-C SCAN REFERRAL Final Result * HISTORIC MAMMOGRAM (09/11/2024 3:00 AM EST) 09/11/2024 3:00 AM EST us Alexandrea Ivan PA-C IMG MAMMO Final Result * (ABNORMAL) TSH W/RFLX FREE T4 (08/24/2024 1:53 PM EST) TSH W/REFLEX TO FT4 0.39(L) 0.40 - 4.50 mIU/L [facility] Blood Blood / Unknown 08/24/2024 1 :53 PM EST 08/24/2024 1:54 PM EST Narrative [facility] - 08/28/2024 6:42 PM EST FASTING:NO us Alexandrea Ivan PA-C LAB - BLOOD DRAW Edited Resu lt - Final [facility] [address] [address], [employer] [address] [address] * MICROALBUMIN/CREATININE RATIO, URINE, RANDOM (08/24/2024 1:53 PM EST) CREATININE, RANDOM URINE 29 20 - 275 mg/dL [facility] [place] [employer] MICROALBUMIN 0.2 mg/dL [facility] Comment: Reference Range Not established MICROALBUMIN/CREA TININE RATIO, RANDOM URINE 7 <30 mg/g creat [facility] Comment: The ADA defines abnormalities in albumin excretion as follows: Albuminuria Category ?Result (mg/g creatinine) Normal to Mildly increased ?? <30 Moderately increased ? 30-299 Severely increased ? > OR = 300 The ADA recommends that at least two of three specimens collected within a 3-6 month period be abnormal before considering a patient to be within a diagnostic category. Urine Urine specimen / Unknown 08/24/2024 1:53 PM EST 08/24/2024 1:54 PM EST Narrative [employer] [facility] - 08/28/2024 6:42 PM EST FASTING:NO Alexandrea Ivan PA-C LAB - NO BLOOD DRAW Final Re sult [employer] [address] [address], [facility] [address] [place] [address] * (ABNORMAL) HEMOGLOBIN GLYCOSYLATED A1C (08/24/2024 1:53 PM EST) HEMOGLOBIN A1C 7.6(H) <5.7 % of total Hgb [facility] Comment: For someone without known diabetes, a hemoglobin A1c value of 6.5% or greater indicates that they may have diabetes and this should be confirmed with a follow-up test. For someone with known diabetes, a value <7% indicates that their diabetes is well controlled and a value greater than or equal to 7% indicates suboptimal control. A1c targets should be individualized based on duration of diabetes, age, comorbid conditions, and other considerations. Currently, no consensus exists regarding use of hemoglobin A1c for diagnosis of diabetes for children. ?? Blood Blood / Unknown 08/24/2024 1 :53 PM EST 08/24/2024 1:54 PM EST Narrative [employer] [facility] - 08/28/2024 6:42 PM EST FASTING:NO Alexandrea Ivan PA-C LAB - BLOOD DRAW Edited Resu lt - Final [facility] [address] [address], [employer] [address] [address] * (ABNORMAL) LIPID PANEL (08/24/2024 1:53 PM EST) CHOLESTEROL, TOTAL 140 <200 mg/dL [facility] HDL CHOLESTEROL 57 > OR = 50 mg/dL [facility] TRIGLYCERIDES 157(H) <150 mg/dL [facility] LDL-CHOLESTEROL 60 99 mg/dL (calc) [facility] Comment: Reference range: <100 Desirable range <100 mg/dL for primary prevention; ?? <70 mg/dL for patients with CHD or diabetic patients with > or = 2 CHD risk factors. LDL-C is now calculated using the Cody-Huff calculation, which is a validated novel method providing better accuracy than the Friedewald equation in the estimation of LDL-C. Cody SS et al. ANTONI. 2013;310(19): 0119-7212 (http://education.[employer]/faq/XCF381) CHOL/HDLC RATIO 2.5 <5.0 (calc) [facility] NON-HDL CHOLESTEROL 83 <130 mg/dL (calc) [facility] Comment: For patients with diabetes plus 1 major ASCVD risk factor, treating to a non-HDL-C goal of <100 mg/dL (LDL-C of <70 mg/dL) is considered a therapeutic option. Blood Blood / Unknown 08/24/2024 1 :53 PM EST 08/24/2024 1:54 PM EST Narrative [employer] [facility] - 08/28/2024 6:42 PM EST FASTING:NO Alexandrea Ivan PA-C LAB - BLOOD DRAW Final Resul t Performing Organization Address [facility] Co de Phone Number [facility] [address] [address], [employer] [address] [place] [address] * (ABNORMAL) COMPREHENSIVE METABOLIC PANEL (08/24/2024 1:53 PM EST) GLUCOSE 183(H) 65 - 139 mg/dL [facility] Comment: ?Non-fasting reference interval UREA NITROGEN (BUN) 17 7 - 25 mg/dL [facility] CREATININE (blood) 1.13(H) 0.60 - 1.00 mg/dL [facility] EGFR 50(L) > OR = 60 mL/min/1. 73m2 [facility] BUN/CREATININE RATIO 15 6 - 22 (calc) [facility] SODIUM 138 135 - 146 mmol/L [facility] POTASSIUM 4.6 3.5 - 5.3 mmol/L [facility] CHLORIDE 98 98 - 110 mmol/L [facility] CARBON DIOXIDE 28 20 - 32 mmol/L [facility] CALCIUM 9.7 8.6 - 10.4 mg/dL [facility] PROTEIN, TOTAL 7.1 6.1 - 8.1 g/dL [facility] ALBUMIN 4.2 3.6 - 5.1 g/dL [facility] GLOBULIN 2.9 1.9 - 3.7 g/dL (calc) [facility] ALBUMIN/GLOBULI N RATIO 1.4 1.0 - 2.5 (calc) [facility] BILIRUBIN, TOTAL 0.3 0.2 - 1.2 mg/dL [facility] ALKALINE PHOSPHATASE 56 37 - 153 U/L [facility] AST 15 10 - 35 U/L [facility] ALT 16 6 - 29 U/L [facility] Blood Blood / Unknown 08/24/2024 1 :53 PM EST 08/24/2024 1:54 PM EST Narrative [facility] - 08/28/2024 6:42 PM EST FASTING:NO Alexandrea Ivan PA-C LAB - BLOOD DRAW Edited Resu lt - Final Performing Organization Address City/[facility]/ZIP Co de Phone Number [facility] [address] [address], [facility] [address] [place] [address] * EYE EXAM (07/16/2024 3:00 AM EST) 07/16/2024 3:00 AM EST us Alexandrea Ivan PA-C OTHER Edited Resul t - Final * HISTORIC COLONOSCOPY (10/22/2022 3:00 AM EST) 10/22/2022 3:00 AM EST us Alexandrea Ivan PA-C PROCEDURES Final Result * HISTORIC DEXA SCAN (08/09/2022 3:00 AM EST) 08/09/2022 3:00 AM EST us Alexandrea Ivan PA-C IMG DXA Final Result * HEPATITIS C ANTIBODY (07/11/2018 2:07 PM EST) HEPATITIS C VIRUS SCREEN NEGATIVE NEGATIVE [facility] Blood specimen (specimen) Blood / Unknown 07/11/2018 2:07 PM EST 07/11/2018 6:38 PM EST Narrative [facility] - 07/11/2018 8:30 PM EST [employer] [address] [place] [address] PT ID [id number] ORD# [id number] us Alexandrea Ivan PA-C LAB - BLOOD DRAW Final Resul t [facility] [employer] [address], from Last 3 Months or Most Recently Relevant to Health Maintenance Insurance [facility] Member Subscriber Plan / Payer (Ef fective 2016-Present) Name:Khadijah Servin Relation to Subscriber:Self Name:Khadijah Servin Payer ID:[id number] Group ID:Not on file Type:[employer] Address: [place] [address] [place] [address] Care Teams Purchase Price Analyst Relationship Specialty Start Date End Date Alexandrea Ivan PA-C [address] [place] [phone] PCP - General 03/16/13
--- OUTSIDE RECORDS SUMMARY | 2025-01-01 12:24 | XMS_ITS | Clinical Summary ---
Author Organization [facility] Address [address] [place] [address] Phone Care Team Providers Care Glazier Apprentice Name Role Phone Alexandrea Ivan Primary Care Provider [phone] Allergies No known active allergies Medications albuterol HFA (PROAIR HFA ; PROVENTIL HFA ; VENTOLIN HFA) 90 mcg/actuation inhaler INHALE 2 PUFFS BY MOUTH EVERY 4 TO 6 HOURS NEEDED 3 Active ammonium lactate (LAC-HYDRIN) 12 % lotion APPLY TOPICALLY TO THE TO THE AFFECTED AREA NEEDED DRY SKIN 3 Active anastrozole (ARIMIDEX) 1 mg TAKE 1 TABLET(1 MG) BY MOUTH DAILY Not taking 2 Active aspirin 81 mg EC tablet Take 1 tablet (81 mg total) by mouth 1 (one) time each day. Active calcium carb/vit D3/minerals (CALCIUM-VITAMIN D ORAL) Calcium Carbonate-Vitam in D 600-400 MG-UNIT per tablet TAKE 1 TABLET BY MOUTH TWICE DAILY WITH FOOD 9 Active cholecalciferol (VITAMIN D-3) 25 mcg (1,000 unit) tablet Take 1 tablet (1,000 Units total) by mouth daily. Active diclofenac (VOLTAREN) 1 % topical gel Apply 1 Application topically 2 (two) times a day. 3 Active FLUoxetine (PROzac) 20 mg capsule Take 1 capsule (20 mg total) by mouth 1 (one) time each day. Active folic acid (FOLVITE) 1 mg tablet Take 1 tablet (1,000 mcg total) by mouth daily. 3 Active gabapentin (NEURONTIN) 300 mg capsule Take 1 capsule (300 mg total) by mouth every night at bedtime. 3 Active insulin detemir (LEVEMIR FlexTouch) 100 unit/mL (3 mL) injection pen Inject under the skin. Active levothyroxine (SYNTHROID, LEVOTHROID) 100 mcg tablet Take 1 tablet (100 mcg total) by mouth every morning on an empty stomach. Active lisinopriL (PRINIVIL,ZESTRI L) 2.5 mg tablet Take 1 tablet (2.5 mg total) by mouth 1 (one) time each day. Active multivit-mineral s/folic acid (CENTRUM MULTIGUMMIES ORAL) Take by mouth. Activ e omeprazole (PriLOSEC) [address] capsule TAKE 1 CAPSULE BY MOUTH EVERY MORNING BEFORE BREAKFAST. DO NOT CRUSH OR CHEW 9 Active QUEtiapine (SEROquel) 200 mg tablet Take 1 tablet (200 mg total) by mouth every night at bedtime. 3 Active rosuvastatin (CRESTOR) 5 mg tablet Take 1 tablet (5 mg total) by mouth every night at bedtime. 3 Active semaglutide (Ozempic) 0.25 mg or 0.5 mg(2 mg/1.5 mL) injection pen INJECT 0.5MG INTO THE SKIN EVERY WEEK 3 Active tiotropium (Spiriva Respimat) 1.25 mcg/actuation inhalation spray Take 2 puffs by mouth daily. 3 Active zolpidem (AMBIEN) 10 mg tablet Take 1 tablet (10 mg total) by mouth every night at bedtime. 0 Active cyanocobalamin (VITAMIN B-12) 500 mcg tablet Take 1 tablet (500 mcg total) by mouth daily. 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, estrogen receptor positive (CMS/HCC V24, CMS/HCC V28) 05/04/2024 Osteopenia 07/28/2022 Encounters Date Type Department Care Team Description 10/10/2024 1:48 PM EST - 10/10/2024 11:59 PM EST Hospital Encounter [facility] [address] [phone] Hellen Headley, 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, estrogen receptor positive, unspecified laterality ([facility] V24, [facility] V28) (Primary Dx); Osteopenia, unspecified location Discharge Disposition: Home or Self Care 10/03/2024 11:30 AM EST Office Visit [facility] Hematology Oncology [address] [place] [address] Hellen Headley, 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, estrogen receptor positive, unspecified laterality ([facility] V24, [facility] V28) (Primary Dx); Osteopenia, unspecified location; Breast asymmetry on examination from Last 3 Months Immunizations Name Administration Dates Next Due [place] SARS-CoV-2 COVID -19, vector-nr, rS-Ad26, preservative free 01/06/2021 [place] SARS-CoV-2 COVID-19, mRNA, LNP-S, preservative free 02/10/2022,08/25/2021 Surgical History Surgery Date Site/Laterality Comments STEREOTACTIC CORE BIOPSY BREAST LUMPECTOMY Medical History Medical History Date Comments Malignant neoplasm of left b reast ([facility] [place]24, [facility] V28) DX:Malignant neoplasm of lef t breast (HCC) Emphysema of lung ([facility] V 24, [facility] V28) DX:Emphysema of lung (HCC) Diabetes mellitus ([facility]/HCC V 24, [facility] V28) DX:Diabetes mellitus (HCC) Hypothyroidism DX:Hypothyroidis m Hypertension DX:Hypertension Asthma DX:Asthma Family History Medical History Relation Name Comments Cancer Father liver Stroke Mother Breast cancer Sister Relation Name Status Comments Father Mother Sister Social History Tobacco Use Types Packs/Day Years Used Date Smoking Tobacco: Former Smokeless Tobacco: Never Tobacco Cessation:Counseling Given: Not Answered Alcohol Use Standard Drinks/Week Comments No 0 (1 standard drink = 0.6 oz pur e alcohol) Comments No Sex and Gender Information Value Date Recorded Sex Assigned at Female 08/10/2024 1:55 PM EST Legal Sex Female 4:27 AM EST Gender Identity Female 08/10/2024 1:55 PM EST Sexual Orientation Straight 08/10/2024 2: 27 PM EST Obstetrics History Para Term AB IAB SAB Ectopic Multiple Livin g Live Births 2 Last Filed Vital Signs Vital Sign Reading Time Taken Comments Blood Pressure 146/72 10/10/2024 1:57 PM EST Pulse 81 10/10/2024 1:57 PM EST Temperature 37 ??C (98.6 ??F) 10/10/2024 1:57 PM EST Respiratory Rate 16 10/10/2024 1:57 PM EST Oxygen Saturation 99% 10/10/2024 1:57 PM EST Inhaled Oxygen Concentration - - Weight 75.3 kg (166 lb) 10/03/2024 11:40 AM EST Height 157.5 cm (5' 2 ) 10/03/2024 11:40 AM EST Body Mass Index 30.36 10/03/2024 11:40 AM EST Plan of Treatment Upcoming Encounters Date Type Department Care Team (Late st Contact Info) Description 03/15/2025 10:30 AM EDT Appointment [facility] [address] [phone] 04/02/2025 11:30 AM EDT Office Visit [facility] Hematology Oncology [address] [place] [phone] Hellen Headley, [address] [place] [phone] 04/10/2025 11:00 AM EDT Appointment [facility] [address] [place] [phone] Health Maintenance Due Date Last Done Comments Diabetes: Annual Foot Exam 1956 Diabetes: Annual Retina Eye Exam 1955 Zoster Vaccines (1 of 2) 1965 RSV Immunization Adult Patients (1 - 1-dose 75+ series) 2021 Medicare Annual Wellness Visit 08/11/2022 Social Influencers of Health Screening 08/11/2022 Depression Screening 08/20/2023 08/20/2022 DTaP,Tdap,and Td Vaccines (2 - Td or Tdap) 12/22/2024 12/22/2014 COVID-19 Vaccine ( season) 2024 06/28/2024, 06/09/2022, 02/10/2022, Additional history exists Diabetes: Blood Sugar Control Test (HGBA1C) 02/22/2025 08/24/2024, 02/09/2023, 02/09/2023 Diabetes: Annual Urine Albumin-Creatinine Ratio (uACR) 08/24/2025 08/24/2024, 08/20/2022, 08/20/2022, Additional history exists Diabetes: Annual GFR (Glomerular Filtration Rate) 10/03/2025 10/03/2024, 08/24/2024, 02/09/2023, Additional history exists Hypertension/CHF/CAD Annual BMP Blood Test 10/03/2025 10/03/2024, 08/24/2024, 02/09/2023, Additional history exists Falls Risk Assessment 10/10/2025 10/10/2024 Cholesterol Screening (Lipid Panel) 08/24/2029 08/24/2024, 08/24/2024, 02/09/2023, Additional history exists Osteoporosis Screening (Bone Density Screening) 08/13/2034 08/13/2024, 08/09/2022, 08/06/2021, Additional history exists Hepatitis C Screening Completed 07/11/2018 , 07/11/2018, 07/11/2018 Pneumococcal Vaccine: 50+ Years Completed 07/12/2023, 08/20/2022, 08/31/2018 Influenza Vaccine Completed 06/28/2024, , 06/09/2022, Additional history exists HIB Vaccines Aged Out No longer eligi ble based on patient's age to complete this topic HPV Vaccines Aged Out No longer eligi ble based on patient's age to complete this topic Hepatitis A Vaccines Aged Out No long er eligible based on patient's age to complete this topic Hepatitis B Vaccines Aged Out No long er eligible based on patient's age to complete this topic IPV Vaccines Aged Out No longer eligi ble based on patient's age to complete this topic MMR Vaccines Aged Out No longer eligi ble based on patient's age to complete this topic Meningococcal ACWY Vaccine Aged Out N o longer eligible based on patient's age to complete this topic Meningococcal B Vaccine Aged Out No l onger eligible based on patient's age to complete this topic RSV Immunization Patients Under 20 months Aged Out No longer eligible based on patient's age to complete this topic Varicella Vaccines Aged Out No longer eligible based on patient's age to complete this topic Procedures Procedure Name Priority Date/Time Associated Diagnosis Comments COMPREHENSIVE METABOLIC PANEL Routine 10/03/2024 12:13 PM EST 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, estrogen receptor positive, unspecified laterality ([facility] V24, [facility] V28) BD BONE DENSITY DXA AXIAL SKELETON Routine 08/13/2024 1:57 PM EST Hx of osteopenia HEMOGLOBIN A1C Routine 02/09/2023 LIPID PANEL Routine 02/09/2023 URINE ALBUMIN CREATININE RATIO Routine 08/20/2022 HEPATITIS C SCREENING Routine 07/11/2018 from Last 3 Months or Most Recently Relevant to Health Maintenance Results * (ABNORMAL) Comprehensive metabolic panel (10/03/2024 12:13 PM EST) Sodium 139 133 - 145 mmol/L LAB CHEMISTRY METHOD 10/03/2024 2:20 PM EST [facility] Potassium 3.9 3.5 - 5.5 mmol/L LAB CHEMISTRY METHOD 10/03/2024 2:20 PM EST [facility] Chloride 105 96 - 110 mmol/L LAB CHEMISTRY METHOD 10/03/2024 2:20 PM EST [facility] CO2 27 21 - 32 mmol/L LAB CHEMISTRY METHOD 10/03/2024 2:20 PM EST [facility] Anion Gap 7 3 - 11 LAB CHEMISTRY METHOD 10/03/2024 2:20 PM EST [facility] Glucose 251(H) 70 - 100 mg/dL LAB CHEMISTRY METHOD 10/03/2024 2:20 PM EST [facility] BUN 21 5 - 25 mg/dL LAB CHEMISTRY METHOD 10/03/2024 2:20 PM [facility] Creatinine 0.93 0.50 - 1.10 mg/dL LAB CHEMISTRY METHOD 10/03/2024 2:20 PM [facility] eGFR 63 >=60 mL/min/1. 73m2 LAB CHEMISTRY METHOD 10/03/2024 2:20 PM [facility] Comment:Calculation based on the??Chronic Kidney Disease Epidemiology Collaboration (CKD-EPI) equation refit??without adjustment for race. BUN/Creatinine Ratio 22.6 LAB CHEMISTRY METHOD 10/03/2024 2:20 PM [facility] Calcium 9.3 8.5 - 10.5 mg/dL LAB CHEMISTRY METHOD 10/03/2024 2:20 PM [facility] AST (SGOT) 17 10 - 42 unit/L LAB CHEMISTRY METHOD 10/03/2024 2:20 PM [facility] ALT (SGPT) 30 10 - 60 unit/L LAB CHEMISTRY METHOD 10/03/2024 2:20 PM [facility] Alkaline Phosphatase 65 42 - 121 unit/L LAB CHEMISTRY METHOD 10/03/2024 2:20 PM [facility] Total Protein 7.4 6.0 - 8.0 g/dL LAB CHEMISTRY METHOD 10/03/2024 2:20 PM [facility] Albumin 3.9 3.2 - 5.0 g/dL LAB CHEMISTRY METHOD 10/03/2024 2:20 PM [facility] Total Bilirubin 0.2 0.0 - 1.4 mg/dL LAB CHEMISTRY METHOD 10/03/2024 2:20 PM [facility] Blood Venous blood specimen / Unknown Venipuncture / Unknown 10/03/2024 12:13 PM EST 10/03/2024 1:39 PM EST Hellen Headley DO LAB BLOOD ORDERABLES Final Result [facility] [address] [place] [address], * BD Bone Density DXA Axial Skeleton (08/13/2024 1:57 PM EST) Anatomical Region Laterality Modality Wrist, Hip, L-spine Bone Densito metry 08/15/2024 9:01 AM EST Impressions 08/15/2024 9:02 AM EST 1. Osteopenia. ??There has been an increase of 12.8% in bone mineral density in the lumbar spine since the prior examination of 08/09/2022. ??There has been an increase of 8.7% in bone mineral density in the right femur and an increase of 6.4% in bone mineral density in the left femur. 2. FRAX analysis yields a 10-year probability of major osteoporotic fracture of 17.3% and a 10-year probability of hip fracture of 4.2%. Code 49973 -------- FINAL REPORT -------- Dictated By: Doron Parmar Dictated Date: 08/15/2024 09:01 ET Assigned Physician: Doron Parmar Reviewed and Electronically Signed By: Doron Parmar Signed Date: 08/15/2024 09:02 ET Workstation ID: [id number] Transcribed By: Self Edit Transcribed Date: 08/15/2024 09:01 ET Narrative 08/15/2024 9:02 AM EST HISTORY: ??The patient is a 78-year-old postmenopausal female on chronic glucocorticoid therapy, with clinical concern for metabolic bone disease. FINDINGS: ??Dual energy x-ray absorptiometry of the lumbar spine and femurs is performed. The mean bone mineral density at L1-3 is 1.074 gm/cm2 which is 92% of that of young normals and 107% of that of age matched controls. This yields a T-score of -0.8 and a Z-score of 0.6 and there is therefore no evidence of osteoporosis or osteopenia here. The mean bone mineral density of the femurs bilaterally is 0.992 gm/cm2 which is 98% of that of young normals and 123% of that of age matched controls. ??This yields a T-score of -0.1 and a Z-score of 1.5 and there is therefore no evidence of osteoporosis or osteopenia here. However, the T-score of the right femoral neck is -1.7 and that of the left femoral neck is -2.0 which is diagnostic of osteopenia. Procedure Note Doron Parmar MD - 08/15/2024 HISTORY: The patient is a 78-year-old postmenopausal female on chronicglucocorticoid therapy, with clinical concern for metabolic bonedisease. FINDINGS: Dual energy x-ray absorptiometry of the lumbar spine and femursis performed. The mean bone mineral density at L1-3 is 1.074 gm/cm2 whichis 92% of that of young normals and 107% of that of age matched controls.This yields a T-score of -0.8 and a Z-score of 0.6 and there is thereforeno evidence of osteoporosis or osteopenia here. The mean bone mineral density of the femurs bilaterally is 0.992 gm/[id number] is 98% of that of young normals and 123% of that of age matchedcontrols. This yields a T-score of -0.1 and a Z-score of 1.5 and there istherefore no evidence of osteoporosis or osteopenia here. However, theT-score of the right femoral neck is -1.7 and that of the left femoralneck is -2.0 which is diagnostic of osteopenia. IMPRESSION: 1. Osteopenia. There has been an increase of 12.8% in bone mineraldensity in the lumbar spine since the prior examination of 08/09/2022.There has been an increase of 8.7% in bone mineral density in the rightfemur and an increase of 6.4% in bone mineral density in the left femur. 2. FRAX analysis yields a 10-year probability of major osteoporoticfracture of 17.3% and a 10-year probability of hip fracture of 4.2%. Code 92877 -------- FINAL REPORT -------- Dictated By: Doron Parmar Dictated Date: 08/15/2024 09:01 ET Assigned Physician: Doron Parmar Reviewed and Electronically Signed By: Doron Parmar Signed Date: 08/15/2024 09:02 ET Workstation ID: [id number] Transcribed By: Self Edit Transcribed Date: 08/15/2024 09:01 ET Result [facility] Hellen Kidd Fang DO IMG DXA PROCEDURES Fi nal Result * Hemoglobin A1c (02/09/2023) Pathologist [facility] Hemoglobin A1C 0.0 % Comment:no interpretation Blood Venous blood specimen / Unknown Result [facility] Historical Provider LAB BLOOD ORDERABLES Dyana l Result * Lipid panel (02/09/2023) [facility] Triglycerides 0 mg/dL Comment:no interpretation Cholesterol 0 mg/dL Comment:no interpretation HDL 0 mg/dL Comment:no interpretation LDL Cholesterol 0 mg/dL Comment:no interpretation Blood Venous blood specimen / Unknown Result [facility] Historical Provider LAB BLOOD ORDERABLES Dyana l Result * Urine Albumin Creatinine Ratio (08/20/2022) Pathologist [facility] Urine Albumin Creatinine Ratio abstracted Result [facility] Historical Provider HEALTH MAINTENANCE Final Result * Hepatitis C Screening (07/11/2018) Pathologist [facility] Hepatitis C Screening abstracted Historical Provider HEALTH MAINTENANCE Final Result from Last 3 Months or Most Recently Relevant to Health Maintenance Insurance [facility] MEDICARE Member Subscriber Plan / Payer (Ef fective 2016-Present) Name:Katrin Servin Relation to Subscriber:Self Name:Katrin Servin Payer ID:[id number] Group ID:[id number] Type:Not on file Address: [address] [place] [address] MEDICA[place] Care Teams Glazier Apprentice Relationship Specialty Start Date End Date Alexandrea Ivan PA [address] [place] [phone] PCP - General Internal Medicine 12/16/21
== END 2025-01-01 11:29 | disposition home or self-care (01) ==
LOC: HO.RHES 10:42
PROVIDERS: PCP Internal Medicine Rheumatology; Visit Provider Internal Medicine Rheumatology
DX: M19.011 Primary osteoarthritis, right shoulder (principal); M19.012 Primary osteoarthritis, left shoulder; M79.18 Myalgia, other site
CPT/HCPCS: 99213; G2211

== ENCOUNTER → 2025-01-01 10:42 | Outpatient (BNVA) | payer MEDICARE, SELFPAY | PROVIDERS: PCP Internal Medicine Rheumatology; Visit Provider Internal Medicine Rheumatology | DX: M19.011 Primary osteoarthritis, right shoulder (principal); M19.012 Primary osteoarthritis, left shoulder; M79.18 Myalgia, other site | CPT/HCPCS: 99212 ==

== ENCOUNTER 2025-04-03 10:14 | Outpatient (AMB) | payer MEDICARE, SELFPAY ==
--- NOTE | 2025-04-03 10:17 | A.OFFVIS_ITS ---
Vital Signs 04/03/25 10:18 Height 5 ft 4 in Weight 174 lb 6 oz BMI 29.9 BP 160/100 H Blood Pressure Location Rt brachial Position Sitting Pulse 92 Pulse Source Pulse Oximeter Pulse Oximetry (%) 96 Oxygen Delivery Method Room Air Intake Visit Reasons: 3 months Intake Note: Patient presents today for diffuse joint pain. Accompanied by: market development specialist Allergies No Known Allergies Allergy (Verified 04/03/25 10:18) HPI HPI 3 months: Details: Slovak-speaking patient. ALMOND BLANCHER OPERATOR interprets. Shoulders feel good. She completed PT for shoulder strengthening. She is compliant with PT exercises at home. She is currently going to PT for management of back pain. She continues to have back pain with prolonged sitting. She is not applying heat to back. She gets relief with TENs unit. Physical Exam Vital Signs: Last Vital Signs Pulse 92 04/03/25 10:18 BP 160/100 H 04/03/25 10:18 Pulse Ox 96 04/03/25 10:18 Oxygen Delivery Method Room Air 04/03/25 10:18 BMI result Body Mass Index 29.9 Const Other: General: Comfortable Skin: No lesions seen MSK: Nontender bilateral shoulders. Shoulder abduction right 160 degrees, left 110 degrees. She has difficulty internally rotating shoulders. Tender lumbar spinous process and paraspinal muscles. Good lumbar flexion. Assessment & Plan Assessment & Plan (1) Low back pain: Comment: She has a component of myofascial strain contributing to her pain. I am orderi ng L-spine x-ray to evaluate for spinal pathology contributing to her pain. We discussed conservative management. Code(s): M54.50 - Low back pain, unspecified Category: Medical Qualifiers: Chronicity: chronic Plan: Continue physical therapy She will ask physical therapist for recommendations of TENs unit to by for home use Try lidocaine patch applied to back daily Apply heat or ice to back twice a day Return to clinic in 3 months (2) Osteoarthritis of glenohumeral joints, bilateral: Comment: Pain is controlled with prior cortisone injections. She has reduced range of motion on exam. Code(s): M19.011 - Primary osteoarthritis, right shoulder; M19.012 - Primary osteoarthritis, left shoulder Category: Medical Plan: We discussed importance of consistency with home exercise program from PT. She will try to do exercises daily Orders: Orders XR lumbar spine 2-3V Today M54.50 - Low back pain, unspecified Coding Level of Care Code Est Pt Level 4 (48543) Complex EM visit Add On G2211 Diagnoses Low back pain M54.50 Chronicity: chronic Osteoarthritis of glenohumeral joints, bilateral M19.011; M19.012
[2025-04-03 10:18] VITALS: BP 160/100; PULSE 92; O2SAT 96; BMI 29.9
--- OUTSIDE RECORDS SUMMARY | 2025-04-03 11:04 | XMS_ITS | Clinical Summary ---
Author Organization [facility] Address [address] [place] [address] Care Team Providers Care Cloth Printing Inspector Name Role Phone Alexandrea Ivan PA-C Primary [...] 87 04/11/2024 2:03 PM EDT Temperature 36.9 C (98.4 F) 04/11/2024 2:03 PM EDT Respiratory Rate 18 04/11/2024 2:03 PM EDT [...] Vaccine ( season) 2024 02/10/2022, 08/25/2021, 01/06/2021 DTap / Tdap / Td (2 - Td or Tdap) 12/22/2024 12/22/2014 Influenza Vaccine (#1) 2025 2, 04/25/2021, 05/29/2020, Additional history exists Hepatitis C Screening Completed 07/11/2018 Pneumococcal Vaccine Completed 08/20/2022, 08/31/20 18 Hepatitis B Vaccines Aged Out No long er eligible based on patient's age to complete this topic RSV Ped < 20 months Aged Out No longe r eligible based on patient's age to complete this topic Care Teams Cloth Printing Inspector Relationship Specialty Start Date End Date Alexandrea Ivan PA-C [address] [place] [address] PCP - General Physician Fourdrinier Tender 08/16/17
== END 2025-04-03 11:02 | disposition home or self-care (01) ==
LOC: HO.RHES 10:15
PROVIDERS: PCP Internal Medicine Rheumatology; Visit Provider Internal Medicine Rheumatology
DX: M54.50 Low back pain, unspecified (principal); M19.011 Primary osteoarthritis, right shoulder; M19.012 Primary osteoarthritis, left shoulder
CPT/HCPCS: 99214; G2211

== ENCOUNTER → 2025-04-03 10:14 | Outpatient (BNVA) | payer MEDICARE, SELFPAY | PROVIDERS: PCP Internal Medicine Rheumatology; Visit Provider Internal Medicine Rheumatology | DX: M54.50 Low back pain, unspecified (principal); M19.011 Primary osteoarthritis, right shoulder; M19.012 Primary osteoarthritis, left shoulder | CPT/HCPCS: 99212 ==

== ENCOUNTER 2025-06-27 11:29 | Outpatient (REF) | payer OTHER, SELFPAY ==
--- NOTE | ~2025-06-27 | XR_ITS ---
EXAMINATION: XR LUMBOSACRAL SPINE CLINICAL INFORMATION: M54.50 - Low back pain, unspecified COMPARISON: None available. TECHNIQUE: AP and lateral views FINDINGS: Levoconvex rotoscoliosis apex at L3-4. Multilevel marginal osteophyte formation and endplate sclerosis and decreased intervertebral disc height throughout the axial skeleton. Grade 1 anterolisthesis L4-5. No acute cortical disruption. No lytic or blastic lesions. There are at least 4 dystrophic calcifications in the lower pelvis. Vascular calcifications, abdominal aorta, iliac arteries, mesenteric arteries and likely splenic artery. XR/XR lumbar spine 2-3V IMPRESSION: Thoracolumbar rotoscoliosis and multilevel spondylosis resulting in grade 1 anterolisthesis L4-5. Probable calcified uterine fibroids. Electronically signed by: Ko Gutierrez MD 06/27/2025 11:59 AM EDT
--- OUTSIDE RECORDS SUMMARY | 2025-06-27 14:39 | XMS_ITS ---
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 Past Plans Radiation Treatments * No radiation treatments are documented for this patient in [facility]. Treatments may have been administered in another system.
--- OUTSIDE RECORDS SUMMARY | 2025-06-27 14:39 | XMS_ITS ---
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, estrogen receptor positive ([facility] V24, [facility] V28) 05/04/2024 Osteopenia 07/28/2022 Current Treatment and Therapy Plans DENOSUMAB ( PROLIA ) 60 MG SQ EVERY 6 MONTHS* Plan Start Date:04/10/2025 Plan Provider:Hellen Headley, Linked Problems 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 Past Treatment and Therapy Plans No past plan information found.
--- OUTSIDE RECORDS SUMMARY | 2025-06-27 14:39 | XMS_ITS | Clinical Summary ---
Author Organization [facility] Address [address] [place] [address] Care Team Providers Care Design Agent Name Role Phone Alexandrea Ivan PA-C Primary Care Provider + [phone] Source Comments PLEASE NOTE, if this patient is a minor, it may be UNLAWFUL to discuss sensitive information that is contained in these records (such as FAMILY PLANNING, MENTAL HEALTH or SUBSTANCE ABUSE) with the minor patient's parent or other person without the patient's specific authorization.[facility] Allergies No known active allergies Medications budesonide-formote roL (SYMBICORT) 160-4.5 mcg/actuation inhalerIndications :Mild persistent asthma without complication 09/06/19 24 Active folic acid (FOLVITE) 1 mg tabletIndications: Type 2 diabetes mellitus without complication, with long-term current use of insulin,Poor short term memory TAKE 1 TABLET BY MOUTH EVERY DAY 90 Tablet 3 01/11/20 24 Active aspirin [address] tablet TAKE 1 TABLET BY MOUTH DAILY 90 Tablet 3 05/14/20 24 Active ammonium lactate (LAC-HYDRIN) 12 % lotionIndications: Primary osteoarthritis involving multiple joints APPLY TOPICALLY TO THE TO THE AFFECTED AREA NEEDED DRY SKIN 400 g 05/14/20 24 Active gabapentin (NEURONTIN) 300 mg capsuleIndications :Diabetic mononeuropathy associated with type 2 diabetes mellitus TAKE 1 CAPSULE BY MOUTH EVERY NIGHT AT BEDTIME 90 Capsule 5 05/30/20 24 Active acetaminophen (TYLENOL) 500 mg tabletIndications: Mixed headache TAKE 1 TABLET BY MOUTH THREE TIMES DAILY 90 Tablet 5 08/10/20 24 Active lancets (FREESTYLE LANCETS) 28 gauge USE TO CHECK BLOOD SUGAR 4 TIMES DAILY 200 Each 08/15/20 24 Active MISCELLANEOUS MEDICAL SUPPLY MISCIndications:Pr imary osteoarthritis involving multiple joints by miscellaneous route 3 (three) times daily shaheed evans, disp 90/month, dx left shoulder pain 90 Each 11 08/24/20 24 Active magnesium oxide (MAG-OX) 400 mg (241.3 mg magnesium) tabletIndications: Routine general medical examination at a health care facility Take 1 Tablet by mouth once daily 90 Tablet 3 08/24/20 24 Active levothyroxine 100 mcg tabletIndications: Hypothyroidism due to acquired atrophy of thyroid TAKE 1 TABLET BY MOUTH EVERY DAY 90 Tablet 4 09/03/20 24 Active insulin glargine 100 unit/mL (3 mL) pen Inject 50 Units into the skin 2 (two) times daily 90 mL 4 09/11/19 25 Active calcium carbonate-vitamin D3 600 mg-10 mcg (400 unit) tabletIndications: Spondylosis of lumbar region without myelopathy or radiculopathy TAKE 1 TABLET BY MOUTH TWICE DAILY WITH A MEAL 180 Tablet 2 10/08/19 25 Active diclofenac sodium (VOLTAREN) 1 % gelIndications:Spo ndylosis of lumbar region without myelopathy or radiculopathy APPLY TOPICALLY TO THE AFFECTED AREA TWICE DAILY 300 g 5 10/09/19 25 Active rosuvastatin (CRESTOR) 5 mg tablet TAKE 1 TABLET BY MOUTH EVERY NIGHT AT BEDTIME 90 Tablet 2 12/14/19 25 Active semaglutide (OZEMPIC) 0.25 mg or 0.5 mg (2 mg/3 mL) pen injector INJECT 0.5 MG UNDER THE SKIN EVERY WEEK 9 mL 5 12/14/19 25 Active FLUoxetine (PROZAC) 20 mg capsuleIndications :Major depressive disorder, recurrent episode, mild with anxious distress TAKE 1 CAPSULE BY MOUTH EVERY MORNING 90 Capsule 1 12/30/19 25 Active blood sugar diagnostic (FREESTYLE LITE STRIPS) strips USE TO CHECK BLOOD SUGAR 4 TIMES DAILY 200 Each 11 01/19/20 25 Active lidocaine (LIDODERM) 5 % patchIndications:L umbar neuralgia Apply 1 patch to the affected area for a maximum of 12 hours, followed by removal for 12 hours.. 30 Patch 4 01/23/20 25 Active docusate sodium (COLACE) 100 mg capsule Take 2 Capsules by mouth nightly at bedtime. 180 Capsule 3 02/23/20 25 Active cyanocobalamin (VITAMIN B-12) 1,000 mcg tablet Take 1 Tablet by mouth once daily. 90 Tablet 1 03/29/20 25 Active SYNJARDY 12.5-500 mg tab TAKE ONE TABLET BY MOUTH EVERY DAY 120 Tablet 04/23/20 25 Active lisinopriL 10 mg tabletIndications: Hypertension, essential, benign TAKE 1 TABLET BY MOUTH EVERY NIGHT AT BEDTIME 90 Tablet 3 05/09/20 25 Active cholecalciferol (VITAMIN D-3) 50 mcg (2,000 unit) capsuleIndications :B12 nutritional deficiency TAKE ONE CAPSULE BY MOUTH EVERY DAY 90 Capsule 2 05/13/20 25 Active QUEtiapine (SEROQUEL) 200 mg tabletIndications: Primary insomnia,Major depressive disorder, recurrent episode, mild with anxious distress Take 1 Tablet by mouth nightly at bedtime. 90 Tablet 1 05/21/20 25 Active zolpidem (AMBIEN) 10 mg tabletIndications: Primary insomnia,Major depressive disorder, recurrent episode, mild with anxious distress Take 1 Tablet by mouth nightly at bedtime. Max Daily Amount: 10 mg 30 Tablet 3 05/21/20 25 Active MISCELLANEOUS MEDICAL SUPPLY MISC by miscellaneous route daily Cane, disp1, lifetime need, lumbar disc disease, OA knees. 1 Each 05/22/20 25 Active MISCELLANEOUS MEDICAL SUPPLY MISC by miscellaneous route daily Shower chair with back, disp1, lifetime need, lumbar disc disease, OA knees. 1 Each 05/22/20 25 Active Active Problems Problem Noted Date Diagnosed Date Mixed incontinence 08/24/2024 Mild dementia 02/22/2024 Major depressive disorder, r ecurrent episode, mild with anxious distress 03/14/[address] gland enlargement on CT 11/201911/23/19 Overview (11/23/2019): CT Neck W - 11/23/19 - 854 HISTORY: Breast carcinoma, right parotid gland mass. COMMENTS: Dedicated contrast-enhanced CT Neck Soft Tissue examination ([employer], 272.07 DLP (mGy-cm), CT utilizing dose reduction [...] regarding infectious/inflammatory process (parotiditis) and follow-up recommended. [address] CT [employer] G9637 G9557 A Expedited message has been communicated to the office of TAMMIE GARZA via the Character [employer] System on 11/23/2019 9:34 AM, Message ID [id number]. Dictating Physician: JEROME RMOERO DO Electronically Signed by: JEROME ROMERO DO Dic Date/Time: 11/23/19 0923 Sign date/Time: 11/23/19 0935 Bilateral hearing loss 09/27/2019 Right foot bunion 03/21/2018 Spondylosis of lumbar region without myelopathy or radiculopathy 01/13/2018 Primary insomnia 04/27/2017 Diabetic neuropathy 02/18/2017 Anxiety and depression, insomnia Psych: Dr. Rudy lópez 05/17/2016 Overview (12/01/2021): Zolpidem 10, fluoxetine 20 qd, quetiapine 200qhs Bilateral bunions 11/17/2015 Corneal scar: [facility] 04/07/2015 History of echocardiogram 03/2017: essentialy no rmal 09/09/2014 Overview (04/27/2017): Result type: Echocardiogram - Complete Result date: March 22, 2017 9:36 Result status: Modified Result title: Echo Complete Performed by: Rahul Brewster MD on March 22, 2017 9:36 Verified by: Rahul Brewster MD on March 22, 2017 9:36 Encounter info: [id number], [facility], One Time OP, 03/22/2017 - 03/22/2017 Contributor system: [employer] * Final Report * Echo Complete-Doppler, Colorflow, M-Mode Transthoracic Echocardiography Report (TTE) Patient Demographics Patient Name KHADIJAH SERVIN Date of Study 03/22/2017 Corporate Gender Female Facility Race Ethnicity Date of 1945 Height: 64 inches Age 71 year(s) Weight: 171 pounds Accession Number [id number] BSA: 1.83 m2 Room Number BMI: 29.35 kg/m2 Referring Physician Miryam CHO Interpreting Kinsey Brewster Physician Roof Slater Alden Fitzgerald RCS Indications Chest pain. Clinical [...] mmHg E' Lateral Velocity: 7.35 cm/s E/Med E':9.646125 E/Lat E':5.407553 Cardiac Anatomy Left Ventricle/Interventricular Septum The left [...] on 12 October 2013 13:59 Encounter info: [id number], [facility], One Time OP, 10/12/2013 - 10/12/2013 Contributor system: [employer] * Final Report * Echo Complete-Doppler, Colorflow, M-Mode Transthoracic Echocardiography Report (TTE) Patient Demographics Patient Name KHADIJAH SERVIN Date of Study 10/12/2013 Corporate Gender Female Facility Race Ethnicity Date of 1945 Height: 64.17 inches Age 67 year(s) Weight: 167.55 pounds Accession Number [id number] BSA: 1.82 m2 Room Number BMI: 28.6 kg/m2 Referring Physician Miryam CHO Interpreting Physician Cm Lyons MD Roof Slater Alden Fitzgerald RCS Indications Hypertension. Clinical History [...] cm/s PV Peak Gradient: 3.31 mmHg E/Med E':6.283691 E/Lat E':5.574074 Cardiac Anatomy Left Ventricle/Interventricular Septum The left [...] complication, with long-term current use of insulin ([facility]) 03/23/2013 Overview (05/17/2016): Opthal: Dr. Kennedy Asthma, mild persistent, Pulm: Dr. Fitzgerald 03/23 Hypothyroid 03/23/2013 Osteoarthritis 03/23/2013 B12 nutritional deficiency 03/23/2013 Dyspepsia 03/23/2013 History of breast cancer 08/05/2012 Resolved Problems Problem Noted Date Diagnosed Date Resolved Date Breast cancer 08/16/2017 04/09/2024 Encounters Date Type Department Care Team Description 06/06/2025 11:15 AM EDT BH/MH Visits [address] [phone] Ashish Trujillo, TRUCK DRIVER [employer] 05/27/2025 Interim Notes [address] [phone] Josemanuel Bell MA 05/23/2025 1:45 PM EDT BH/MH Visits [address] [phone] Ashish Trujillo, TRUCK DRIVER [employer] 05/21/2025 9:00 AM EDT Office Visit [address] [phone] Alexandrea Ivan PA-C 05/08/2025 11:15 AM EDT BH/MH Visits [address] [phone] Ashish Trujillo, TRUCK DRIVER [employer] 04/23/2025 10:20 AM EDT Office Visit [address] [phone] 04/18/2025 10:30 AM EDT BH/MH Visits [address] [phone] Ashish Trujillo, TRUCK DRIVER [employer] 03/27/2025 10:30 AM EDT BH/MH Visits [address] [phone] Ronnie Ashish, TRUCK DRIVER [employer] from Last 3 Months Immunizations Immunization Administration Dates Next Due Flu, Adjuvant, 65y+ (Fluad) 06/09/2022 Flu, High Dose, 65y+, Fluzon e High Dose 07/12/2023,04/25/2021,05/29/2020 INFLUENZA, SEASONAL, INJECTABLE 05/17/20 16,07/03/2015,07/08/2014,2010 Influenza (FLUAD), Trivalent , Adjuvanted 06/28/2024,08/31/2018 Influenza (FLUZONE), high-do se, trivalent, PF 05/21/2025 eBrevia COVID-19 VACCINE 01/06/2021 PFIZER COVID VACCINE, PURPLE CAP, 12+ 02/10/2022 ,08/25/2021 PNEUMOCOCCAL CONJUGATE PCV 13 08/31/2018 PNEUMOCOCCAL CONJUGATE PCV 2 0 (Prevnar 20) 07/12/2023,08/20/2022 TDAP 01/22/2025,12/22/2014 ZOSTER VACCINE, RECOMBINANT (SHINGRIX) 05/21/2025,01/22/2025 Family History Medical History Relation Name Comments Schizophrenia Daughter Depression Maternal Aunt Relation Name Status Comments Daughter Maternal Aunt Social History Tobacco Use Types Packs/Day Years Used Date Smoking Tobacco: Former Cigarettes Passive Smoke Exposure: Never Smokeless Tobacco: Never Tobacco Cessation:Counseling Given: Yes Alcohol Use Standard Drinks/Week Comments No 0 (1 standard drink = 0.6 oz pur e alcohol) Social Connections Answer Date Recorded How often do you see or talk to people that you care about and feel close to? (For example: talking to friends on phone, visiting friends or family, going to druze or club meetings) 1 07/17/2024 Financial Resource Strain Answer Date R ecorded Hard to pay for: Food 2 07/17/2024 Stress Answer Date Recorded Do you feel these kinds of stress these days? 2 07/17/2024 Physical Activity Answer Date Recorded Weekly Physical Activity 2 024 Food Insecurity Answer Date Recorded Hard to pay for: Food 2 07/17/2024 Transportation Needs Answer Date Record ed Hard to pay for: Transportation 1 07/17/2024 Housing Stability Answer Date Recorded Hard to pay for: Rent/Mortgage payment 1 07/17/2024 Safety and Environment Answer Date Sp rded How often does anyone, inclu ding family and friends, physically hurt you? 1 07/17/2024 Utilities Answer Date Recorded Hard to pay for: Utilities 1 07/17 Employment Answer Date Recorded Are you currently employed? 1 07/06 Comments No Sex and Gender Information Value Date Recorded Sex Assigned at Female 07/13/2017 7:44 AM PST Legal Sex Female 12:49 PM PDT Gender Identity Female 07/13/2017 7:44 AM PST Sexual Orientation Straight 07/13/2017 7: 44 AM PST Last Filed Vital Signs Vital Sign Reading Time Taken Comments Blood Pressure 132/74 05/21/2025 9:09 AM EDT Pulse 97 05/21/2025 9:09 AM EDT Temperature 36.8 C (98.2 F) 05/21/2025 9:09 AM EDT Respiratory Rate 16 05/21/2025 9:09 AM EDT Oxygen Saturation 98% 05/21/2025 9:09 AM EDT Inhaled Oxygen Concentration - - Weight 77.6 kg (171 lb) 05/21/2025 9:09 AM EDT Height 160 cm (5' 3 ) 05/21/2025 9:09 AM EDT Body Mass Index 30.29 05/21/2025 9:09 AM EDT Plan of Treatment Upcoming Encounters Date Type Department Care Team (Late st Contact Info) Description 07/01/2025 11:15 AM EDT / Visits [facility] [address] [place] [phone] Ashish Trujillo LCSW [address] [place] [address] 07/09/2025 9:00 AM EST Office Visit [address] [phone] Alexandrea Ivan PA-C [address] [place] [address] 07/15/2025 11:20 AM EST Office Visit [address] [phone] Asael Chu, RD [address] [place] [address] Health Maintenance Due Date Last Done Comments Medicare Annual Wellness Visit [address] Colonography 11/11/1991 Fecal DNA 11/11/1991 Flexible Sigmoidoscopy 11/11/1991 Falls Prevention 11/11/2011 FIT/gFOBT 09/09/2015 09/09/2014 (Declined) Imm-RSV (adult) (1 - 1-dose 75+ series) 2021 [id number] ( season) 2025 06/28/2024, 06/09/2022, 02/10/2022, Additional history exists Retinopathy Screening 07/16/2025 07/16/2024 , 07/13/2023, 07/12/2022, Additional history exists Hemoglobin A1c 07/25/2025 01/22/2025, 08/06, 02/09/2023, Additional history exists Depression Monitoring 08/07/2025 05/08/2025 , 01/22/2025, 08/20/2022, Additional history exists Urine Albumin Creatinine Rat io Screening 08/24/2025 08/24/2024, 08/20/2022, 12/01/2021, Additional history exists Breast Cancer Screening (Mammogram) 09/15/2025 03/15/2025, 03/15/2025, 09/11/2024, Additional history exists Lipid Screening 01/22/2026 01/22/2025, 08/06, 02/09/2023, Additional history exists TSH Monitoring 01/22/2026 01/22/2025, 08/06, 02/09/2023, Additional history exists Dental Examination 01/24/2026 01/22/2025 (M anaged by Outside Provider), 08/25/2021 (Managed by Outside Provider) Serum Creatinine 04/02/2026 04/02/2025, , 10/03/2024, Additional history exists Diabetes Foot Exam 05/21/2026 05/21/2025, 0 01/22/2025, 08/26/2024, Additional history exists Tobacco Screening 05/21/2026 05/21/2025 Colonoscopy 10/22/2032 10/22/2022, 10/06, 10/22/2022, Additional history exists Colorectal Cancer Screening 10/22/2032 Imm-DTaP/Tdap/Td (3 - Td or Tdap) 01/22/2035 025, 12/22/2014 Hepatitis C Screening Completed 07/11/2018 Imm-Pneumococcal 50+ Completed 07/12/2023, 08/20/2022, 08/31/2018 Bone Density Screening Completed , 08/09/2022, 08/09/2022, Additional history exists Alcohol and Drug Screen Completed 01/23/20, 08/20/2022, 12/01/2021, Additional history exists Imm-Influenza Completed 05/21/2025, 06/06, 07/12/2023, Additional history exists Imm-Zoster, Recombinant Completed 05/21/2025, 01/22 Goals Goal Patient Goal Type Associated Problems Recent Progress Patient-Stated? Author Blood Pressure < 140/90 Blood Pressure Hypertension, essential, benign 132/74( 025 9:09 AM EDT) No Alejandro Hong, PharmD Procedures Procedure Name Priority Date/Time Associated Diagnosis Comments REFERRAL SCANNED DOCUMENT 06/12/2025 3:00 AM EDT REFERRAL SCANNED DOCUMENT 04/02/2025 3:00 AM EDT HISTORIC MAMMOGRAM 03/15/2025 3: 00 AM EDT TSH W/RFLX FREE T4 Routine 01/22/2025 11 :31 AM EDT Type 2 diabetes mellitus without complication, with long-term current use of insulin (CMS & [facility]-HCC) Mild persistent asthma without complication ([facility]HS-HCC) Hypothyroidism due to acquired atrophy of thyroid B12 nutritional deficiency Mild vitamin D deficiency Preventive measure COMPREHENSIVE METABOLIC PANEL Routine 01/22/2025 11:31 AM EDT Type 2 diabetes mellitus without complication, with long-term current use of insulin (CMS & HHS-HCC) Mild persistent asthma without complication (HHS-HCC) Hypothyroidism due to acquired atrophy of thyroid B12 nutritional deficiency Mild vitamin D deficiency Preventive measure LIPID PANEL Routine 01/22/2025 11:31 AM EDT Type 2 diabetes mellitus without complication, with long-term current use of insulin (CMS & HHS-HCC) Mild persistent asthma without complication (HHS-HCC) Hypothyroidism due to acquired atrophy of thyroid B12 nutritional deficiency Mild vitamin D deficiency Preventive measure HEMOGLOBIN GLYCOSYLATED A1C Routine 01/22/2025 11:31 AM EDT Type 2 diabetes mellitus without complication, with long-term current use of insulin (CMS & HHS-HCC) Mild persistent asthma without complication (HHS-HCC) Hypothyroidism due to acquired atrophy of thyroid B12 nutritional deficiency Mild vitamin D deficiency Preventive measure MICROALBUMIN/CREATINI NE RATIO, URINE, RANDOM Routine 08/24/2024 1:53 PM EST Routine general medical examination at a [facility] Type 2 diabetes mellitus without complication, with long-term current use of insulin (HCC-CMS) Hypothyroidism due to acquired atrophy of thyroid B12 nutritional deficiency Mild dementia, unspecified dementia type, unspecified whether behavioral, psychotic, or mood disturbance or anxiety (HCC-CMS) Hypertension, essential, benign Malaise and fatigue Short-term memory loss EYE EXAM 07/16/2024 3:00 AM EST HISTORIC COLONOSCOPY 10/22/2022 3:00 AM EST HISTORIC DEXA SCAN 08/09/2022 3: 00 AM EST HEPATITIS C ANTIBODY Routine 07/11/2018 2:07 PM EST Insulin dependent type 2 diabetes mellitus, uncontrolled (HCC-CMS) from Last 3 Months or Most Recently Relevant to Health Maintenance Results * REFERRAL SCANNED DOCUMENT (06/12/2025 3:00 AM EDT) Only the most recent of2 resultswithin the time period is included. 06/12/2025 3:00 AM EDT us Alexandrea Ivan PA-C SCAN REFERRAL Final Result * HISTORIC MAMMOGRAM (03/15/2025 3:00 AM EDT) 03/15/2025 3:00 AM EDT us Alexandrea Ivan PA-C IMG MAMMO Final Result * TSH W/RFLX FREE T4 Routine (01/22/2025 11:31 AM EDT) TSH W/REFLEX TO FT4 1.33 0.40 - 4.50 mIU/L [employer] Blood Blood / Unknown 01/22/2025 1 1:31 AM EDT 01/22/2025 11:31 AM EDT Alexandrea Ivan PA-C LAB - BLOOD DRAW Edited Resu lt - Final Performing Organization Address City/[facility]/ZIP Co de Phone Number [facility] [address] [address], [facility] [address] [phone] * (ABNORMAL) HEMOGLOBIN GLYCOSYLATED A1C Routine (01/22/2025 11:31 AM EDT) HEMOGLOBIN A1C 6.9(H) <5.7 % [employer] [facility] Comment: For someone without known diabetes, [...] A1c for diagnosis of diabetes for children. Blood Blood / Unknown 01/22/2025 1 1:31 AM EDT 01/22/2025 11:31 AM EDT us Alexandrea Ivan PA-C LAB - BLOOD DRAW Final Resul t Performing Organization Address [facility]/ZIP Co de Phone Number [facility] [address] [address], [facility] [address] [phone] * (ABNORMAL) LIPID PANEL Routine (01/22/2025 11:31 AM EDT) CHOLESTEROL, TOTAL 144 <200 mg/dL [facility] HDL CHOLESTEROL 54 > OR = 50 mg/dL [facility] TRIGLYCERIDES 172(H) <150 mg/dL [facility] LDL-CHOLESTEROL 65 99 mg/dL (calc) [facility] Comment: Reference range: <100 Desirable range <100 mg/dL for primary prevention; <70 mg/dL for patients with CHD or diabetic patients with > or = 2 CHD risk factors. LDL-C is now calculated using the Azael calculation, which is a validated novel method providing better accuracy than the Friedewald equation in the estimation of LDL-C. Cody SS et al. ANTONI. 2013;310(19): 6504-9575 (http://education.expresscoin/faq/SWY569) CHOL/HDLC RATIO 2.7 <5.0 (calc) [facility] NON-HDL CHOLESTEROL 90 <130 mg/dL (calc) [facility] Comment: For patients with diabetes plus 1 major ASCVD risk factor, treating to a non-HDL-C goal of <100 mg/dL (LDL-C of <70 mg/dL) is considered a therapeutic option. Blood Blood / Unknown 01/22/2025 1 1:31 AM EDT 01/22/2025 11:31 AM EDT Alexandrea Ivan PA-C LAB - BLOOD DRAW Final Resul t [facility] [address] [place] [id number], [employer] [address] [address] * (ABNORMAL) COMPREHENSIVE METABOLIC PANEL Routine (01/22/2025 11:31 AM EDT) GLUCOSE 222(H) 65 - 99 mg/dL [facility] Comment: Fasting reference interval For someone without known diabetes, a glucose value >125 mg/dL indicates that they may have diabetes and this should be confirmed with a follow-up test. UREA NITROGEN (BUN) 21 7 - 25 mg/dL [facility] CREATININE (blood) 0.97 0.60 - 1.00 mg/dL [facility] EGFR 60 > OR = 60 mL/min/1. 73m2 [facility] BUN/CREATININE RATIO SEE NOTE: [facility] Comment: Not Reported: BUN and Creatinine are within reference range. SODIUM 139 135 - 146 mmol/L [facility] [facility] POTASSIUM 4.6 3.5 - 5.3 mmol/L [facility] CHLORIDE 100 98 - 110 mmol/L [facility] CARBON DIOXIDE 31 20 - 32 mmol/L [facility] CALCIUM 9.2 8.6 - 10.4 mg/dL [facility] PROTEIN, TOTAL 7.1 6.1 - 8.1 g/dL [facility] ALBUMIN 4.1 3.6 - 5.1 g/dL [facility] GLOBULIN 3.0 1.9 - 3.7 g/dL (calc) [facility] ALBUMIN/GLOBULI N RATIO 1.4 1.0 - 2.5 (calc) [facility] BILIRUBIN, TOTAL 0.3 0.2 - 1.2 mg/dL [facility] ALKALINE PHOSPHATASE 57 37 - 153 U/L [facility] [facility] AST 17 10 - 35 U/L [employer] [facility] ALT 21 6 - 29 U/L [facility] Blood Blood / Unknown 01/22/2025 1 1:31 AM EDT 01/22/2025 11:31 AM EDT us Alexandrea Ivan PA-C LAB - BLOOD DRAW Edited Resu lt - Final [facility] [place] [address] [address], [employer] [address] [address] * MICROALBUMIN/CREATININE RATIO, URINE, RANDOM (08/24/2024 1:53 PM EST) CREATININE, RANDOM URINE 29 20 - 275 mg/dL [facility] MICROALBUMIN 0.2 mg/dL [facility] Comment: Reference Range Not established MICROALBUMIN/CREA TININE RATIO, RANDOM URINE 7 <30 mg/g creat [facility] [facility] Comment: The ADA defines abnormalities in albumin excretion as follows: Albuminuria Category Result (mg/g creatinine) Normal to Mildly increased <30 Moderately increased 30-299 Severely increased > OR = 300 The ADA recommends that at least two of three specimens collected within a 3-6 month period be abnormal before considering a patient to be within a diagnostic category. Urine Urine specimen / Unknown 08/24/2024 1:53 PM EST 08/24/2024 1:54 PM EST Narrative [facility] - 08/28/2024 6:42 PM EST FASTING:NO Alexandrea Ivan PA-C LAB URINE AMBULATORY Final R esult [facility] [address] [address], [place] [facility] [address] [place] [phone] * EYE EXAM (07/16/2024 3:00 AM EST) 07/16/2024 3:00 AM EST Alexandrea Ivan PA-C OTHER Edited Resul t - Final * HISTORIC COLONOSCOPY (10/22/2022 3:00 AM EST) 10/22/2022 3:00 AM EST Alexandrea Ivna PA-C PROCEDURES Final Result * HISTORIC DEXA SCAN (08/09/2022 3:00 AM EST) 08/09/2022 3:00 AM EST Alexandrea Ivan PA-C IMG DXA Final Result * HEPATITIS C ANTIBODY (07/11/2018 2:07 PM EST) HEPATITIS C VIRUS SCREEN NEGATIVE NEGATIVE [facility] Blood specimen (specimen) Blood / Unknown 07/11/2018 2:07 PM EST 07/11/2018 6:38 PM EST Narrative [facility] - 07/11/2018 8:30 PM EST [employer] [facility] [address] [place] [address] PT ID [id number] ORD# [id number] Alexandrea Ivan PA-C LAB - BLOOD DRAW Final Resul t [facility] [address] [place] [address], from Last 3 Months or Most Recently Relevant to Health Maintenance Insurance [facility] Care Teams Design Agent Relationship Specialty Start Date End Date Alexandrea Ivan PA-C [address] [place] [phone] PCP - General 03/16/13
--- OUTSIDE RECORDS SUMMARY | 2025-06-27 14:39 | XMS_ITS | Clinical Summary ---
Author Organization [facility] Address [address] [place] [address] Phone Care Team Providers Care Button Pusher Name Role Phone Alexandrea Ivan Primary Care Provider [phone] Allergies No known active allergies Medications ammonium lactate (LAC-HYDRIN) 12 % lotion APPLY TOPICALLY TO THE TO THE AFFECTED AREA NEEDED DRY SKIN 04/04/20 23 Active anastrozole (ARIMIDEX) 1 mg TAKE 1 TABLET(1 MG) BY MOUTH DAILY Not taking 12/16/19 22 Active aspirin 81 mg EC tablet Take 1 tablet (81 mg total) by mouth 1 (one) time each day. Active calcium carb/vit D3/minerals (CALCIUM-VITAMIN D ORAL) Calcium Carbonate-Vitam in D 600-400 MG-UNIT per tablet TAKE 1 TABLET BY MOUTH TWICE DAILY WITH FOOD 05/09/20 19 Active cholecalciferol (VITAMIN D-3) 25 mcg (1,000 unit) tablet Take 1 tablet (1,000 Units total) by mouth daily. Active diclofenac (VOLTAREN) 1 % topical gel Apply 1 Application topically 2 (two) times a day. 02/02/20 23 Active FLUoxetine (PROzac) 20 mg capsule Take 1 capsule (20 mg total) by mouth 1 (one) time each day. Active folic acid (FOLVITE) 1 mg tablet Take 1 tablet (1,000 mcg total) by mouth daily. 03/29/20 23 Active gabapentin (NEURONTIN) 300 mg capsule Take 1 capsule (300 mg total) by mouth every night at bedtime. 03/29/20 23 Active insulin detemir (LEVEMIR FlexTouch) 100 unit/mL [...] BEFORE BREAKFAST. DO NOT CRUSH OR CHEW 05/04/20 19 Active QUEtiapine (SEROquel) 200 mg tablet Take 1 tablet (200 mg total) by mouth every night at bedtime. 02/03/20 23 Active rosuvastatin (CRESTOR) 5 mg tablet Take 1 tablet (5 mg total) by mouth every night at bedtime. 03/29/20 23 Active semaglutide (Ozempic) 0.25 mg or 0.5 mg(2 mg/1.5 mL) injection pen INJECT 0.5MG INTO THE SKIN EVERY WEEK 12/11/19 23 Active tiotropium (Spiriva Respimat) 1.25 mcg/actuation inhalation spray Take 2 puffs by mouth daily. 03/22/20 23 Active zolpidem (AMBIEN) 10 mg tablet Take 1 tablet (10 mg total) by mouth every night at bedtime. 01/16/20 10 Active cyanocobalamin (VITAMIN B-12) 500 mcg tablet Take 1 tablet (500 mcg total) by mouth daily. Active docusate sodium (COLACE) 100 mg capsule TAKE ONE CAPSULE BY MOUTH TWICE DAILY 60 capsule 5 11/14/19 25 Active fluticasone furoate-vilanter oL (BREO ELLIPTA) 100-25 mcg/dose inhaler Inhale 1 puff by mouth 1 (one) time each day. 3 each 03/22/20 25 026 Active fluticasone-salm eterol (ADVAIR DISKUS) 250-50 mcg/dose diskus inhaler Inhale 1 puff by mouth 2 (two) times a day. Rinse mouth with water after use to reduce aftertaste and incidence of candidiasis. Do not swallow. 1 each 06/12/20 25 Active albuterol HFA (ProAir HFA) 90 mcg/actuation inhaler Inhale 2 puffs by mouth every 6 (six) hours if needed for wheezing. 6.7 g 11 06/12/20 25 026 Active albuterol HFA (PROAIR HFA ; PROVENTIL HFA ; VENTOLIN HFA) 90 mcg/actuation inhaler Inhale 2 puffs by mouth every 6 (six) hours if needed for wheezing. every 4 to 6 hours as needed 6.7 g 11 06/12/20 25 Active albuterol HFA (PROAIR HFA ; PROVENTIL HFA ; VENTOLIN HFA) 90 mcg/actuation inhaler Inhale 2 puffs by mouth every 6 (six) hours if needed for wheezing. every 4 to 6 hours as needed 6.7 g 03/18/20 25 025 Discontin u([facility]) [facility], or Other Facility Administered Medication Ordered Dose Route Frequency Start Date End Date Status sadyfdtqlgg-cjbtckngnkeo-oo lanterol (TRELEGY ELLIPTA) 100-62.5-25 mcg inhaler 100 mcgIndications:Chronic obstructive pulmonary disease, unspecified COPD type ([facility] V24, [facility] V28) 100 mcg inhl Daily 06/13/2025 09/11/2025 Active Active Problems Problem Noted Date Diagnosed Date 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, estrogen receptor positive ([facility] V24, [facility] V28) 05/04/2024 Osteopenia 07/28/2022 Encounters Date Type Department Care Team Description 06/12/2025 10:15 AM EDT Office Visit Pulmonology [address] [phone] Chester Fitzgerald MD Pulmonary emphysema ([facility] V24, [facility] V28) (Primary Dx); Obesity (BMI 30-39.9); Osteopenia, unspecified location 06/12/2025 Telephone Pul[address]ology [address] [phone] Chester Fitzgerald MD 06/10/2025 11:00 AM EDT Ancillary Procedure Pulmonology [address] [place] [phone] Pulmonary emphysema ([facility] [place]24, [facility] V28) 04/10/2025 11:00 AM EDT - 04/10/2025 11:59 PM EDT Hospital Encounter [facility] [address] [place] [phone] 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, estrogen receptor positive, unspecified laterality ([facility] V24, [facility] V28) (Primary Dx); Osteopenia, unspecified location Discharge Disposition: Home or Self Care 04/02/2025 11:30 AM EDT Office Visit [facility] Oncology [address] [place] [phone] Hellen Headley DO 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, estrogen receptor positive, unspecified laterality ([facility] V24, [facility] V28) (Primary Dx); Osteopenia, unspecified location from Last 3 Months Immunizations Immunization Administration Dates Next Due [employer] SARS-CoV-2 COVID -19, vector-nr, [id number], preservative free 01/06/2021 Gevo SARS-CoV-2 COVID-19, mRNA, LNP-S, preservative free 02/10/2022,08/25/2021 Surgical History Surgery Date Site/Laterality Comments STEREOTACTIC CORE BIOPSY BREAST LUMPECTOMY Medical History Medical History Date Comments Malignant neoplasm of left b reast ([facility] V24, [facility] V28) DX:Malignant neoplasm of lef t breast (HCC) Emphysema of lung ([facility] V 24, [facility] V28) DX:Emphysema of lung (HCC) Diabetes mellitus (CMS/HCC V 24, [facility] V28) DX:Diabetes mellitus (HCC) Hypothyroidism DX:Hypothyroidis m [...] Sign Reading Time Taken Comments Blood Pressure 152/94 06/12/2025 10:19 AM EDT Pulse 87 06/12/2025 10:19 AM EDT Temperature 36.1 C (97 F) 06/12/2025 10:19 AM EDT Respiratory Rate 20 06/12/2025 10:19 AM EDT Oxygen Saturation 97% 06/12/2025 10:19 AM EDT Inhaled Oxygen Concentration - - Weight 77.6 kg (171 lb) 06/12/2025 10:19 AM EDT Height 162.6 cm (5' 4 ) 06/12/2025 10:19 AM EDT Body Mass Index 29.35 06/12/2025 10:19 AM EDT Plan of Treatment Upcoming Encounters Date Type Department Care Team (Late st Contact Info) Description 08/15/2025 10:30 AM EST Appointment [facility] [address] [place] [phone] 09/12/2025 11:00 AM EST Office Visit Pulmonology - [place] [address] [place] [phone] Chester Fitzgerald MD [address] [place] [phone] 09/19/2025 10:45 AM EST Office Visit [facility] On[facility] [address] [place] [phone] Hellen Headley DO [address] [place] [address] 10/09/2025 11:00 AM EST Appointment [facility] [address] [phone] Health Maintenance Due Date Last Done Comments Diabetes: Annual Foot Exam 1955 Diabetes: Annual Retina Eye Exam 1955 RSV Immunization Adult Patients (1 - 1-dose 75+ series) 2021 Medicare Annual Wellness Visit 08/11/2022 Social Influencers of Health Screening 08/11/2022 Depression Screening 09/05/2024 COVID-19 Vaccine ( season) 2025 06/28/2024, 06/09/2022, 02/10/2022, Additional history exists Diabetes: Blood Sugar Control Test (HGBA1C) 07/25/2025 01/22/2025, 08/24/2024, 02/09/2023, Additional history exists Diabetes: Annual Urine Albumin-Creatinine Ratio (uACR) 08/24/2025 08/24/2024, 08/20/2022, 08/20/2022, Additional history exists Diabetes: Annual GFR (Glomerular Filtration Rate) 04/02/2026 04/02/2025, 01/22/2025, 10/03/2024, Additional history exists Hypertension/CHF/CAD Annual BMP Blood Test 04/02/2026 04/02/2025, 01/22/2025, 10/03/2024, Additional history exists Falls Risk Assessment 04/10/2026 04/10/2025 Cholesterol Screening (Lipid Panel) 01/22/2030 01/22/2025, 01/22/2025, 08/24/2024, Additional history exists Osteoporosis Screening (Bone Density Screening) 08/13/2034 08/13/2024, 08/09/2022, 08/06/2021, Additional history exists DTaP,Tdap,and Td Vaccines (3 - Td or Tdap) 01/22/2035 01/22/2025, 12/22/2014 Hepatitis C Screening Completed 07/11/2018 , 07/11/2018, 07/11/2018 Pneumococcal Vaccine: 50+ Years Completed 07/12/2023, 08/20/2022, 08/31/2018 Influenza Vaccine Completed 05/21/2025, , 07/12/2023, Additional history exists Zoster Vaccines Completed 05/21/2025, 01/22/2025 HIB Vaccines Aged Out No longer eligi [...] Procedure Name Priority Date/Time Associated Diagnosis Comments PULMONARY FUNCTION TESTING Routine 06/10/2025 11:45 AM EDT Pulmonary emphysema (CMS/HCC V24, CMS/HCC V28) VITAMIN D 25 HYDROXY Routine 04/02/2025 11:59 AM EDT 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, estrogen receptor positive, unspecified laterality (CMS/HCC V24, CMS/HCC V28) Osteopenia, unspecified location COMPREHENSIVE METABOLIC PANEL Routine 04/02/2025 11:59 AM EDT 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, estrogen receptor positive, unspecified laterality (CMS/HCC V24, CMS/HCC V28) BD BONE DENSITY DXA AXIAL SKELETON Routine 08/13/2024 1:57 PM EST Hx of osteopenia HEMOGLOBIN A1C Routine 02/09/2023 LIPID PANEL Routine 02/09/2023 HM URINE ALBUMIN CREATININE RATIO Routine 08/20/2022 HEPATITIS C SCREENING Routine 07/11/2018 from Last 3 Months or Most Recently Relevant to Health Maintenance Results * Pulmonary function testing: Carbon Monoxide Diffusing Capacity, Flow Volume Loop, Helium Dilution Lung Volumes, Spirometry, Spirometry with Bronchodilator, Sputum Induction, Vital Capacity Test (06/10/2025 11:45 AM EDT) Impressions Chester Fitzgerald MD - 06/10/2025 11:45 AM EDT Pulmonary function test interpretation. Spirometry done today reveals FEV1 of 1.55 which is 77% of the predicted value, FVC is 1.82 which is 68% of the predicted value, FEV1 to FVC ratio is 115% of the predicted value, bronchodilator response was not assessed. Flow-volume loop is consistent with obstructive pattern. Static lung volume are within normal limits. Diffusion lung capacity was moderately reduced however normalized after correction for alveolar volume. This study is consistent with mild degree of obstructive lung disease for which clinical correlation is advised. Chester Fitzgerald MD PFT ORDERABLES Final Result * Vitamin D 25 hydroxy (04/02/2025 11:59 AM EDT) Vit D, 25-Hydroxy 52.6 30.0 - 80.0 ng/mL LAB CHEMISTRY METHOD 04/02/2025 3:26 PM EDT [facility] Blood Venous blood specimen / Unknown Venipuncture / Unknown 04/02/2025 11:59 AM EDT 04/02/2025 1:48 PM EDT us Hellen Headley DO LAB BLOOD ORDERABLES Final Result [facility] [address] [place] [address], [place] [phone] * (ABNORMAL) Comprehensive metabolic panel (04/02/2025 11:59 AM EDT) Sodium 138 133 - 145 mmol/L LAB CHEMISTRY METHOD 04/02/2025 2:14 PM EDT [facility] Potassium 4.3 3.5 - 5.5 mmol/L LAB CHEMISTRY METHOD 04/02/2025 2:14 PM [facility] Chloride 105 96 - 110 mmol/L LAB CHEMISTRY METHOD 04/02/2025 2:14 PM [facility] CO2 31 21 - 32 mmol/L LAB CHEMISTRY METHOD 04/02/2025 2:14 PM [facility] Anion Gap 2(L) 3 - 11 LAB CHEMISTRY METHOD 04/02/2025 2:14 PM [facility] Glucose 109(H) 70 - 100 mg/dL LAB CHEMISTRY METHOD 04/02/2025 2:14 PM [facility] BUN 24 5 - 25 mg/dL LAB CHEMISTRY METHOD 04/02/2025 2:14 PM [facility] Creatinine 1.09 0.50 - 1.10 mg/dL LAB CHEMISTRY METHOD 04/02/2025 2:14 PM [facility] eGFR 52(L) >=60 mL/min/1. 73m2 LAB CHEMISTRY METHOD 04/02/2025 2:14 PM [facility] Comment:Calculation based on the Chronic Kidney Disease Epidemiology Collaboration (CKD-EPI) equation refit without adjustment for race. BUN/Creatinine Ratio 22.0 LAB CHEMISTRY METHOD 04/02/2025 2:14 PM [facility] Calcium 9.8 8.5 - 10.5 mg/dL LAB CHEMISTRY METHOD 04/02/2025 2:14 PM [facility] AST (SGOT) 16 10 - 42 unit/L LAB CHEMISTRY METHOD 04/02/2025 2:14 PM [facility] ALT (SGPT) 28 10 - 60 unit/L LAB CHEMISTRY METHOD 04/02/2025 2:14 PM [facility] Alkaline Phosphatase 58 42 - 121 unit/L LAB CHEMISTRY METHOD 04/02/2025 2:14 PM [facility] Total Protein 7.0 6.0 - 8.0 g/dL LAB CHEMISTRY METHOD 04/02/2025 2:14 PM EDT [facility] Albumin 3.5 3.2 - 5.0 g/dL LAB CHEMISTRY METHOD 04/02/2025 2:14 PM EDT [facility] Total Bilirubin 0.3 0.0 - 1.4 mg/dL LAB CHEMISTRY METHOD 04/02/2025 2:14 PM EDT [facility] Blood Venous blood specimen / Unknown Venipuncture / Unknown 04/02/2025 11:59 AM EDT 04/02/2025 1:48 PM EDT us Hellen Headley DO LAB BLOOD ORDERABLES Final Result Performing Organization Address City/State/[facility] Co de Phone Number [facility] [address] [place] [address], * BD Bone Density DXA Axial Skeleton (08/13/2024 1:57 PM EST) Anatomical Region Laterality Modality Wrist, Hip, L-spine Bone Densito metry 08/15/2024 9:01 AM EST Impressions 08/15/2024 9:02 AM EST 1. Osteopenia. There has been an increase of 12.8% in bone mineral density in the lumbar spine since the prior examination of 08/09/2022. There has been an increase of 8.7% in bone mineral density in the right femur and an increase of 6.4% in bone mineral density in the left femur. 2. FRAX analysis yields a 10-year probability of major osteoporotic fracture of 17.3% and a 10-year probability of hip fracture of 4.2%. Code 38683 -------- FINAL REPORT -------- Dictated By: Doron Parmar Dictated Date: 08/15/2024 09:01 ET Assigned Physician: Doron Parmar Reviewed and Electronically Signed By: Doron Parmar Signed Date: 08/15/2024 09:02 ET Workstation ID: [id number] Transcribed By: Self Edit Transcribed Date: 08/15/2024 09:01 ET Narrative 08/15/2024 9:02 AM EST HISTORY: The patient is a 78-year-old postmenopausal female on chronic glucocorticoid therapy, with clinical concern for metabolic bone disease. FINDINGS: Dual energy x-ray absorptiometry of the [...] 123% of that of age matched controls. This yields a T-score of -0.1 and [...] density of the femurs bilaterally is 0.992 gm/er6vsbow is 98% of that of young normals [...] probability of hip fracture of 4.2%. Code 73656 -------- FINAL REPORT -------- Dictated By: Doron Parmar Dictated Date: 08/15/2024 09:01 ET Assigned Physician: Doron Parmar Reviewed and Electronically Signed By: Doron Parmar Signed Date: 08/15/2024 09:02 ET Workstation ID: [id number] Transcribed By: Self Edit Transcribed Date: 08/15/2024 09:01 ET Result [facility] Hellen Headley DO IMG DXA PROCEDURES Fi nal Result * Hemoglobin A1c (02/09/2023) [facility] Hemoglobin A1C 0.0 % Comment:no interpretation Blood Venous blood specimen / Unknown Result [facility] Provider LAB BLOOD ORDERABLES Dyana l Result * Lipid panel (02/09/2023) [facility] Triglycerides 0 mg/dL Comment:no interpretation Cholesterol 0 mg/dL Comment:no interpretation HDL 0 mg/dL Comment:no interpretation LDL Cholesterol 0 mg/dL Comment:no interpretation Blood Venous blood specimen / Unknown Result [facility] Provider LAB BLOOD ORDERABLES Dyana l Result * Urine Albumin Creatinine Ratio (08/20/2022) [facility] Urine Albumin Creatinine Ratio abstracted Result [facility] Provider HEALTH MAINTENANCE Final Result * Hepatitis C Screening (07/11/2018) [facility] Hepatitis C Screening abstracted us Historical Provider HEALTH MAINTENANCE Final Result from Last 3 Months or Most Recently Relevant to Health Maintenance Insurance [employer] MED[employer] Member Subscriber Plan / Payer (Ef fective 2016-Present) Name:Katrin Servin Relation to Subscriber:Self Name:Katrin Servin Payer ID:[id number] Group ID:[id number] Type:Not on file Address: [place] [address] [place] [address] Care Teams Button Pusher Relationship Specialty Start Date End Date Alexandrea Ivan PA [address] [place] [phone] PCP - General Internal Medicine 12/16/21
--- OUTSIDE RECORDS SUMMARY | 2025-06-27 14:39 | XMS_ITS | Clinical Summary ---
Author Organization [facility] Address [address] [place] [address] Care Team Providers Care Artist'S Representative Name Role Phone Alexandrea Ivan PA-C Primary [...] or (1 - 1-dose 75+ series) 2021 DTap / Tdap / Td (2 - Td or Tdap) 12/22/2024 12/22/2014 COVID-19 Vaccine ( season) 2025 02/10/2022, 08/25/2021, 01/06/2021 Influenza Vaccine (#1) 2025 2, 04/25/2021, 05/29/2020, Additional history exists Hepatitis C Screening Completed 07/11/2018 Pneumococcal Vaccine Completed 08/20/2022, 08/31/20 18 Hepatitis B Vaccines Aged Out No long er eligible based on patient's age to complete this topic RSV Ped < 20 months Aged Out No longe r eligible based on patient's age to complete this topic Care Teams Artist'S Representative Relationship Specialty Start Date End Date Alexandrea Ivan PA-C [address] [place] [address] PCP - General Physician Clubhouse Attendant 08/16/17
== END 2025-06-27 11:30 | disposition home or self-care (01) ==
LOC: HO.XRAY 11:29
PROVIDERS: PCP Physician Assistant; Visit Provider Internal Medicine Rheumatology
DX: M54.50 Low back pain, unspecified (principal)
CPT/HCPCS: 72100

== ENCOUNTER → 2025-06-27 11:57 | Outpatient (BNV) | payer OTHER, SELFPAY | PROVIDERS: PCP Physician Assistant; Visit Provider Radiology Diagnostic Radiology | DX: M47.816 Spondylosis without myelopathy or radiculopathy, lumbar region (principal); M41.34 Thoracogenic scoliosis, thoracic region | CPT/HCPCS: 72100 ==

== ENCOUNTER 2025-07-11 10:23 | Outpatient (AMB) | payer MEDICARE, SELFPAY ==
--- NOTE | 2025-07-11 10:28 | A.OFFVIS_ITS ---
Vital Signs 07/11/25 10:30 Height 5 ft 4 in Weight 172 lb 2.896 oz BMI 29.6 BP 140/80 H Blood Pressure Location Rt brachial Position Sitting Pulse 75 Pulse Source Pulse Oximeter Pulse Oximetry (%) 98 Oxygen Delivery Method Room Air Intake Visit Reasons: July Intake Note: Patient presents today for diffuse joint pain. Director Of Cardiopulmonary Services Name: newton Information Interpreted: non-clinical & clinical Accompanied by: helicopter pilot Allergies No Known Allergies Allergy (Verified 07/11/25 10:32) HPI HPI November: Details: She has had benefit with PT. When PT applies heat to the back she finds it to be more beneficial. She has been compliant with doing exercises at home. She is noticing some pain in her knees but it is not to the point where she needs a cortisone injection. Physical Exam Vital Signs: Last Vital Signs Pulse 75 07/11/25 10:30 BP 140/80 H 07/11/25 10:30 Pulse Ox 98 07/11/25 10:30 Oxygen Delivery Method Room Air 07/11/25 10:30 BMI result Body Mass Index 29.6 Const Other: General: Comfortable Skin: No lesions seen MSK: Tender lumbar spinous process, paraspinal muscles and laterally. Good lumbar flexion. Assessment & Plan Assessment & Plan (1) Low back pain: Comment: Due to myofascial strain and lumbar spondylosis. Improved with PT modalities and exercise strengthening program. Code(s): M54.50 - Low back pain, unspecified Category: Medical Qualifiers: Chronicity: chronic Plan: Continue physical therapy. I have given her a new order with myofascial release and TENs unit trial Continue to apply lidocaine patch applied to back daily Apply heat or ice to back twice a day Continue Tylenol as needed Return to clinic in 6 months or sooner if needed (2) Osteoarthritis of glenohumeral joints, bilateral: Comment: Pain is controlled with prior cortisone injections. Code(s): M19.011 - Primary osteoarthritis, right shoulder; M19.012 - Primary osteoarthritis, left shoulder Category: Medical Plan: Monitor clinically (3) Osteoarthritis of knees, bilateral: Comment: She is starting to experience bilateral knee pain. Code(s): M17.0 - Bilateral primary osteoarthritis of knee Category: Medical Plan: PT ordered for knee strengthening Continue to take Tylenol as needed for pain Return to clinic in 6 months or sooner if needed. She will call office if she needs a cortisone injection Orders: Orders PT Evaluation and Treatment Today M17.0 - Bilateral primary osteoarthritis of knee, M47.816 - Spondylosis without myelopathy or radiculopathy, lumbar region Coding Level of Care Code Est Pt Level 4 (11939) Complex EM visit Add On G2211 Diagnoses Low back pain M54.50 Chronicity: chronic Osteoarthritis of glenohumeral joints, bilateral M19.011; M19.012 Osteoarthritis of knees, bilateral M17.0
[2025-07-11 10:30] VITALS: BP 140/80; PULSE 75; O2SAT 98; BMI 29.6
--- OUTSIDE RECORDS SUMMARY | 2025-07-11 12:14 | XMS_ITS ---
Author Organization 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, estrogen receptor positive ([facility] V24, [facility] V28) 05/04/2024 Osteopenia 07/28/2022 Current Treatment and Therapy Plans DENOSUMAB ( PROLIA ) 60 MG SQ EVERY 6 MONTHS* Plan Start Date:04/10/2025 Plan Provider:Hellen Headley, Linked Problems 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 Past Treatment and Therapy Plans No past plan information found.
--- OUTSIDE RECORDS SUMMARY | 2025-07-11 12:14 | XMS_ITS | Clinical Summary ---
Author Organization [facility] Address [address] [place] [address] Phone Care Team Providers Care Editorial Assistant Name Role Phone Alexandrea Ivan Primary Care Provider [phone] Allergies No known active allergies Medications ammonium [...] needed 6.7 g 03/18/20 25 025 Discontin u([facility]) [facility], or Other Facility Administered Medication Ordered Dose Route Frequency Start Date End Date Status dsownqdnprb-pbhptoucuzgp-cr lanterol (TRELEGY ELLIPTA) 100-62.5-25 mcg inhaler 100 mcgIndications:Chronic obstructive pulmonary disease, unspecified COPD type ([facility] V24, [facility] V28) 100 mcg inhl Daily 06/13/2025 09/11/2025 Active Active Problems Problem Noted Date Diagnosed Date 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, estrogen receptor positive ([facility] V24, [facility] V28) 05/04/2024 Osteopenia 07/28/2022 Encounters Date Type Department Care Team Description 06/12/2025 10:15 AM EDT Office Visit Pulmonology [address] [phone] Chester Fitzgerald MD Pulmonary emphysema ([facility] V24, [facility] V28) (Primary Dx); Obesity (BMI 30-39.9); Osteopenia, unspecified location 06/12/2025 Telephone Pul[address] [phone] Chester Fitzgerald MD 06/10/2025 11:00 AM EDT Ancillary Procedure Pulmonology [address] [place] [phone] Pulmonary emphysema ([facility] V24, [facility] V28) 04/10/2025 11:00 AM EDT - 04/10/2025 11:59 PM EDT Hospital Encounter [facility] [address] [place] [phone] 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, estrogen receptor positive, unspecified laterality (CMS/HCC V24, CMS/HCC V28) (Primary Dx); Osteopenia, unspecified location Discharge Disposition: Home or Self Care from Last 3 Months Immunizations Immunization Administration Dates Next Due [employer] SARS-CoV-2 COVID -19, vector-nr, rS-Ad26, preservative free 01/06/2021 [employer] SARS-CoV-2 COVID-19, mRNA, LNP-S, preservative free 02/10/2022,08/25/2021 Surgical History Surgery Date Site/Laterality Comments STEREOTACTIC CORE BIOPSY BREAST LUMPECTOMY Medical History Medical History Date Comments Malignant neoplasm of left b reast (CMS/HCC V24, [facility] V28) DX:Malignant neoplasm of lef t breast (HCC) Emphysema of lung (CMS/HCC V 24, [facility] V28) DX:Emphysema of lung (HCC) Diabetes mellitus (CMS/HCC V 24, CMS/HCC V28) DX:Diabetes mellitus (HCC) Hypothyroidism DX:Hypothyroidis m [...] Info) Description 08/15/2025 10:30 AM EST Appointment [facility] [address] [place] [phone] 09/12/2025 11:00 AM EST Office Visit Pulmonology [facility] [address] [place] [phone] Chester Fitzgerald MD [address] [place] [phone] 09/19/2025 10:45 AM EST Office Visit [facility] Hematology Oncology [address] [place] [phone] Hellen Headley DO [address] [place] [address] 10/09/2025 11:00 AM EST Appointment [facility] [address] [place] [phone] Health Maintenance Due Date Last Done Comments [...] EDT Pulmonary emphysema (CMS/HCC V24, CMS/HCC V28) COMPREHENSIVE METABOLIC PANEL Routine 04/02/2025 11:59 AM EDT 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 us Chester Fitzgerald MD PFT ORDERABLES Final Result * (ABNORMAL) Comprehensive metabolic panel (04/02/2025 11:59 AM EDT) Sodium 138 133 - 145 mmol/L LAB CHEMISTRY METHOD 04/02/2025 2:14 PM [facility] Potassium 4.3 3.5 - 5.5 mmol/L LAB CHEMISTRY METHOD 04/02/2025 2:14 PM [facility] Chloride 105 96 - 110 mmol/L LAB CHEMISTRY METHOD 04/02/2025 2:14 PM [facility] CO2 31 21 - 32 mmol/L LAB CHEMISTRY METHOD 04/02/2025 2:14 PM [facility] Anion Gap 2(L) 3 - 11 LAB CHEMISTRY METHOD 04/02/2025 2:14 PM [facility] Glucose 109(H) 70 - 100 mg/dL LAB CHEMISTRY METHOD 04/02/2025 2:14 PM [facility] BUN 24 5 - 25 mg/dL LAB CHEMISTRY METHOD 04/02/2025 2:14 PM [facility] Creatinine 1.09 0.50 - 1.10 mg/dL LAB CHEMISTRY METHOD 04/02/2025 2:14 PM [facility] eGFR 52(L) >=60 mL/min/1. 73m2 LAB CHEMISTRY METHOD 04/02/2025 2:14 PM [facility] Comment:Calculation based on the Chronic Kidney Disease Epidemiology Collaboration (CKD-EPI) equation refit without adjustment for race. BUN/Creatinine Ratio 22.0 LAB CHEMISTRY METHOD 04/02/2025 2:14 PM [facility] Calcium 9.8 8.5 - 10.5 mg/dL LAB CHEMISTRY METHOD 04/02/2025 2:14 PM EDT [facility] AST (SGOT) 16 10 - 42 unit/L LAB CHEMISTRY METHOD 04/02/2025 2:14 PM EDT [facility] ALT (SGPT) 28 10 - 60 unit/L LAB CHEMISTRY METHOD 04/02/2025 2:14 PM EDT [facility] Alkaline Phosphatase 58 42 - 121 unit/L LAB CHEMISTRY METHOD 04/02/2025 2:14 PM EDT [facility] Total Protein 7.0 6.0 - 8.0 g/dL LAB CHEMISTRY METHOD 04/02/2025 2:14 PM T [facility] Albumin 3.5 3.2 - 5.0 g/dL LAB CHEMISTRY METHOD 04/02/2025 2:14 PM T [facility] Total Bilirubin 0.3 0.0 - 1.4 mg/dL LAB CHEMISTRY METHOD 04/02/2025 2:14 PM EDT [facility] Blood Venous blood specimen / Unknown Venipuncture / Unknown 04/02/2025 11:59 AM EDT 04/02/2025 1:48 PM EDT us Hellen Headley DO LAB BLOOD ORDERABLES Final Result [facility] [address] [place] [address], * BD Bone Density DXA Axial Skeleton [...] probability of hip fracture of 4.2%. Code 75481 -------- FINAL REPORT -------- Dictated By: Doron Parmar Dictated Date: 08/15/2024 09:01 ET Assigned Physician: Doron Parmar Reviewed and Electronically Signed By: Doron Parmar Signed Date: 08/15/2024 09:02 ET Workstation ID: [id number] Transcribed By: Self Edit Transcribed Date: 08/15/2024 [...] density of the femurs bilaterally is 0.992 gm/ib9rssch is 98% of that of young normals [...] probability of hip fracture of 4.2%. Code 18044 -------- FINAL REPORT -------- Dictated By: Doron Parmar Dictated Date: 08/15/2024 09:01 ET Assigned Physician: Doron Parmar Reviewed and Electronically Signed By: Doron Parmar Signed Date: 08/15/2024 09:02 ET Workstation ID: [id number] Transcribed By: Self Edit Transcribed Date: 08/15/2024 09:01 ET Hellen Headley DO IMG DXA PROCEDURES Fi nal Result * Hemoglobin A1c (02/09/2023) Pathologist [facility] Hemoglobin A1C 0.0 % Comment:no interpretation Blood Venous blood specimen / Unknown Historical Provider LAB BLOOD ORDERABLES Dyana l Result * Lipid panel (02/09/2023) [facility] Triglycerides 0 mg/dL Comment:no interpretation Cholesterol 0 mg/dL Comment:no interpretation HDL 0 mg/dL Comment:no interpretation LDL Cholesterol 0 mg/dL Comment:no interpretation Blood Venous blood specimen / Unknown Result [facility] Historical Provider LAB BLOOD ORDERABLES Dyana l Result * Urine Albumin Creatinine Ratio (08/20/2022) Pathologist [facility] Urine Albumin Creatinine Ratio abstracted [facility] Provider HEALTH MAINTENANCE Final Result * Hepatitis C Screening (07/11/2018) Pathologist [facility] Hepatitis C Screening abstracted Result [facility] Provider HEALTH MAINTENANCE Final Result from Last 3 Months or Most Recently Relevant to Health Maintenance Insurance [employer] MEDICARE Member Subscriber Plan / Payer (Ef fective 2016-Present) Name:GarethKatrin reyes Relation to Subscriber:Self Name:Katrin Servin Payer ID:[id number] Group ID:[id number] Type:Not on file Address: [place] [address] [place] [address] Care Teams Editorial Assistant Relationship Specialty Start Date End Date Alexandrea Ivan PA [address] [place] [phone] PCP - General Internal Medicine 12/16/21
--- OUTSIDE RECORDS SUMMARY | 2025-07-11 12:14 | XMS_ITS ---
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 Past Plans Radiation Treatments * No radiation treatments are documented for this patient in [facility]. Treatments may have been administered in another system.
--- OUTSIDE RECORDS SUMMARY | 2025-07-11 12:14 | XMS_ITS | Clinical Summary ---
Author Organization [facility] Address [address] [place] [address] Care Team Providers Care Marine Chronometer Assembler Name Role Phone Alexandrea Ivan PA-C Primary Care Provider [phone] Allergies No known active allergies Medications Medication [...] age to complete this topic Care Teams Marine Chronometer Assembler Relationship Specialty Start Date End Date Alexandrea Ivan PA-C [address] [place] [address] PCP - General Physician Conference Service Coordinator 08/16/17
== END 2025-07-11 10:51 | disposition home or self-care (01) ==
LOC: HO.RHES 10:23
PROVIDERS: PCP Internal Medicine Rheumatology; Visit Provider Internal Medicine Rheumatology
DX: M54.50 Low back pain, unspecified (principal); M19.011 Primary osteoarthritis, right shoulder; M19.012 Primary osteoarthritis, left shoulder; M17.0 Bilateral primary osteoarthritis of knee
CPT/HCPCS: 99214; G2211

== ENCOUNTER → 2025-07-11 10:23 | Outpatient (BNVA) | payer OTHER, SELFPAY | PROVIDERS: PCP Internal Medicine Rheumatology; Visit Provider Internal Medicine Rheumatology | DX: M19.011 Primary osteoarthritis, right shoulder (principal); M19.012 Primary osteoarthritis, left shoulder; M17.0 Bilateral primary osteoarthritis of knee; M54.50 Low back pain, unspecified | CPT/HCPCS: 99212 ==